=== PATIENT | female | born 1950 | race Caucasian/White ===

== ENCOUNTER 2024-05-10 08:44 | Outpatient (CLI) | payer MEDICARE, SELFPAY ==
--- NOTE | 2024-05-10 09:15 | CRLHL7_ITS ---
For Patients: As a result of the Century Cures Act, medical imaging exams and procedure reports are released immediately into your electronic medical record. You may view this report before your referring provider. If you have questions, please contact your health care provider. ULTRASOUND-GUIDED CORE NEEDLE BREAST BIOPSY OF TWO SITES AND POST-BIOPSY DIGITAL MAMMOGRAM FOR BIOPSY MARKER PLACEMENT CLINICAL HISTORY: Indeterminate lesions. COMPARISON STUDIES: 04/22/2024, 05/02/2024. TECHNIQUE: Real-time ultrasound with image documentation was used for targeting the breast lesions. A core needle biopsy system was used to obtain core tissue samples with a 18-gauge probe. Post-biopsy CC and ML digital mammograms were obtained to document position of the biopsy marker. CONSENT and TIME OUT: The procedure, risks, and alternatives were explained to the patient and a consent was signed. [place] Protocol was followed including pre-procedure verification that relevant information/documentation was available, reviewed and properly matched to the patient; consent accurate and complete; and equipment and supplies available. Time Out was conducted just prior to starting procedure to verify the four required elements: patient identity, correct side/site marked (if applicable), procedure, relevant images/results properly labeled and displayed (if applicable). PROCEDURE: All biopsies were performed in a similar manner. The patient was positioned supine on the ultrasound table. The breast was prepped with ChloraPrep. 6 cc of 1 percent lidocaine used for local anesthesia. Core samples were obtained. A sterile metal biopsy clip was placed percutaneously to gabriela the lesion position within the breast. The specimens were placed in 10% formalin and sent to the Pathology Department. Pressure was held on the biopsy site until all bleeding subsided. The skin incision was closed with Steri-Strips. An ice pack was positioned over the biopsy site. The patient tolerated the procedure well. Post-biopsy instructions were reviewed with the patient, and a written copy was given to her. SITE A: LATERALITY: LEFT breast. LESION: Hypoechoic shadowing nodule measuring 11 x 10 x 8 mm. SUSPICION: High. NUMBER OF SAMPLES: 6. BIOPSY CLIP SHAPE: Oval. PROXIMITY OF CLIP TO TARGET: Within the lesion. SITE B: LATERALITY: LEFT. LESION: Hypoechoic nodule measuring 9 x 6 x 6 mm. SUSPICION: Intermediate. NUMBER OF SAMPLES: 5. BIOPSY CLIP SHAPE: HydroMARK. PROXIMITY OF CLIP TO TARGET: Within/immediately adjacent to the lesion. DISTANCE BETWEEN: Sites A and B: 9 cm. IMPRESSION: Ultrasound-guided breast biopsy of two sites. When the pathology report is available, an addendum to this report will be made. ACR not applicable Dictated by Andrew Rai MD @ 05/10/2024 10:34:50 AM /sp/thalia SP/Dictated by: Andrew Rai MD @ 05/10/2024 10:34:00 AM (Electronically Signed)
--- NOTE | 2024-05-10 10:00 | CRLHL7_ITS ---
For Patients: As a result of the Century Cures Act, medical imaging exams and procedure reports are released immediately into your electronic medical record. You may view this report before your referring provider. If you have questions, please contact your health care provider. PLEASE SEE LEFT ULTRASOUND-GUIDED TWO SITE BIOPSY OF SAME DAY. CRL:sp SP/Dictated by: Andrew Rai MD @ 05/10/2024 10:30:00 AM (Electronically Signed)
== END 2024-05-10 08:45 | disposition home or self-care (01) ==
LOC: US 08:46
PROVIDERS: PCP Family Medicine; Visit Provider Family Medicine
DX: N63.20 Unspecified lump in the left breast, unspecified quadrant (principal); C50.912 Malignant neoplasm of unspecified site of left female breast; R92.8 Other abnormal and inconclusive findings on diagnostic imaging of breast
CPT/HCPCS: 19083; 19084; 77065; 88305; 88360; 88361; A4648; A4649

== ENCOUNTER 2024-06-06 06:20 | Day surgery (SDC) | payer MEDICARE, SELFPAY ==
[2024-06-06] VITALS (12 sets, daily range): BP systolic 145–182; BP diastolic 65–82; PULSE 68–78; RESP 10–20; TEMP 36.3–36.7; O2SAT 91–100; BMI 34.9
--- OUTSIDE RECORDS SUMMARY | 2024-06-06 06:24 | XMS_ITS | Clinical Summary ---
Author Organization [facility] & [facility] Address [place], [place] [address] Care Team Providers Care Quality Facilitator Name Role Phone MikaelteRicky dunn MD Primary Care Provider + Allergies Active Allergy Reactions Criticality Noted Date Comments Chocolate Flavor GI Upset High 08/17/2020 Phenytoin Ataxia 01/03/2007 Medications Medication Sig Dispensed Refills Start Date End Date Status atenoloL (TENORMIN) 50 mg tabletIndications:Essentia l hypertension Take 1 Tablet (50 mg) by mouth once daily. 90 Tablet 3 03/06/2024 Active atorvastatin (LIPITOR) 20 mg tabletIndications:Pure hypercholesterolemia Take 1 Tablet (20 mg) by mouth at bedtime. 90 Tablet 3 03/06/2024 Active Active Problems Problem Noted Date Diagnosed Date Colon polyp 04/07/2023 Overview (04/07/2023): Colonoscopy 04/2023 SSA, large TA, repeat in 3 years Idiopathic gout of knee 05/20/2014 Overview (05/20/2014): Left knee uric acid crystals on aspiration 2013. Unspecified essential hypertension 01/03/2007 Pure hypercholesterolemia 01/03/2007 Encounters Date Type Department Care Team Description 05/24/2024 Telephone [facility] [address] [place] [address] Destiny Briones MD Another order needed 05/23/2024 2:30 PM CDT Preop Visit [facility] [address] [facility] [place] [id number] VoteRicky dunn MD Preoperative Exam ([place], Dr. Briones, 06/06/24, left breast lump) 05/23/2024 Telephone [facility] [address] [place] [address] Destiny Birones MD 05/23/2024 Travel 05/21/2024 3:15 PM CDT Office Visit [facility] [address] [place] [address] [address] Destiny Briones MD Consult (Left breast cancer) 05/21/2024 Travel 05/13/2024 Orders Only [facility] Jorge Luis [facility] [address] Ricky Flynn MD 2 scans: (2-Ord) [facility], US GUIDED BREAST BIOPSY LT, 05/10/2024 05/10/2024 Orders Only [facility] Scanner 1 scan: (1-Ord) [facility], MM CLIP PLACEMENT LT, 05/10/2024 05/10/2024 Lab Requisition [facility] [phone] Unknown, Doctor 05/10/2024 Lab Requisition [facility] [phone] Unknown, Doctor 05/02/2024 2:30 PM CDT Ancillary Procedure [facility] Jorge Luis [facility] [address] 05/02/2024 2:00 PM CDT Ancillary Procedure [facility] [place] [address] [address] 05/02/2024 Ancillary Orders [facility] [place] [address] [address] Ricky Flynn MD 05/02/2024 Travel 04/29/2024 Travel 04/22/2024 9:15 AM CDT Orders Only [facility] [place] [address] [address] Lab, [facility] 04/22/2024 7:40 AM CDT Ancillary Procedure [facility] [place] [address] [address] 04/22/2024 Travel 03/06/2024 7:55 AM CDT Office Visit [facility] [address] [place] [address] VoteRicky dunn MD Medicare ANNUAL (subsequent) Visit (73 year old female) 03/06/2024 Travel from Last 3 Months Immunizations Name Administration Dates Next Due Pneumococcal Poly,23-Valent (Pneumovax) 12/05/19 19 Pneumococcal conj 13-Valent (Prevnar 13) 017 Td (Age >=7 Years) 05/18/2000 Tdap 10/14/2010 Family History Medical History Relation Name Comments Cancer-prostate Father 2004 d Heart Disease Father triple bypass Hypertension Mother of Liver c ancer Cancer Sister uterine 2006 Cancer-breast Sister Relation Name Status Comments Father Mother Alive Sister Social History Tobacco Use Types Packs/Day Years Used Date Smoking Tobacco: Never Smokeless Tobacco: Never Tobacco Cessation:Counseling Given: Yes Alcohol Use Standard Drinks/Week Comments No 0 (1 standard drink = 0.6 oz pur e alcohol) PHQ-2 Answer Date Recorded PHQ-2 TOTAL SCORE 0 03/06/2024 Social Connections Answer Date Recorded Frequency of Communication with Friends and Fami ly 0 03/06/2024 Financial Resource Strain Answer Date R ecorded Difficulty of Paying Living Expenses 3 03/06/2024 Difficulty of Paying Living Expenses Not on file 03/06/2024 Food Insecurity Answer Date Recorded Worried About Running Out of Food in the Last Ye ar 1 03/06/2024 Transportation Needs Answer Date Record ed Lack of Transportation (Medical) 1 03/06/2024 Housing Stability Answer Date Recorded Unable to Pay for Housing in the Last Year 1 03/06/2024 Sex and Gender Information Value Date Recorded Sex Assigned at Not on file Gender Identity Not on file Sexual Orientation Not on file Obstetrics History Para Term AB IAB SAB Ectopic Multiple Livin g Live Births 3 3 2 1 3 Date Outcome GA Total Labor Labor/2nd/3rd Weight Sex Type Anes PTL Mary Beth A1 A5 Name Clin Term Term Last Filed Vital Signs Vital Sign Reading Time Taken Comments Blood Pressure 148/69 05/23/2024 2:22 PM CDT Pulse 63 05/23/2024 2:22 PM CDT Temperature 37.2 ??C (99 ??F) 05/23/2024 2:22 PM CDT Respiratory Rate 16 04/04/2023 9:32 AM CDT Oxygen Saturation 96% 05/23/2024 2:22 PM CDT Inhaled Oxygen Concentration - - Weight 73.3 kg (161 lb 9.6 oz) 05/23/2024 2:22 P M CDT Height 145.9 cm (4' 9.44) 05/23/2024 2:22 PM CD T Body Mass Index 34.44 05/23/2024 2:22 PM CDT Plan of Treatment Upcoming Encounters Date Type Department Care Team (Late st Contact Info) Description 06/06/2024 8:00 AM CDT Office Visit [facility] [address] [place] [address] Destiny Briones MD [address] [place] [address] Health Maintenance Due Date Last Done Comments Hepatitis C screening for ag e 18-79 1968 Zoster (shingles) series for age 50+ (1 of 2) 1967 Tetanus booster 10/14/2020 10/14/2010, 05/18/2000 COVID-19 vaccine series (3 - Moderna risk series) 05/04/2021 04/06/2021, 03/02/2021 RSV vaccine for adults or (1 - 1-dose 75+ series) 2023 Influenza for age 65+ 05/05/2024 Depression screening for age 12+ 03/06/2025 03/06/2024, 03/01/2023, 03/01/2023, Additional history exists Medicare Wellness for age 65+ 03/07/2025, 03/01/2023, 02/23/2022, Additional history exists BMI (ht and wt on same day) for age 18+ 05/23/2025 05/23/2024, 03/06/2024, 03/01/2023, Additional history exists Colonoscopy through age 75 04/04/2026 04/04/2023, Lipids for age 45-75 03/06/2029 03/06/2024, 03/01/2023, 02/23/2022, Additional history exists Tdap Completed 10/14/2010 Pneumococcal series for age 65+ Completed 9, 12/20/2016 DEXA/DXA scan for age 65+ Completed 03/01/2023, 04/2019 Procedures Procedure Name Priority Date/Time Associated Diagnosis Comments EKG 12 LEAD Routine 05/24/2024 11:47 AM CDT Pre-op exam [place] READING EKG - NO CHARGE, COMP ONLY Routine 05/24/2024 11:46 AM CDT Pre-op exam LAB TRACKING EVENT Routine 05/10/2024 9: 37 AM CDT LAB TRACKING EVENT Routine 05/10/2024 9: 20 AM CDT PATH BREAST CORE BIOPSY Routine 05/10/2024 9:20 AM CDT US BIOPSY BREAST NEEDLE W JOE W GUIDE LEFT [place] 05/10/2024 12:00 AM CDT Abnormal mammogram SCAN-OPERATIVE/PROCED URE REPORT 05/10/2024 12:00 AM CDT US BREAST UNILATERAL LEFT LIMITED [place] 05/02/2024 2:57 PM CDT Abnormal mammogram XR MAMMO HANNAH UNI ADDL VIEWS LEFT [place] 05/02/2024 2:22 PM CDT Abnormal mammogram BASIC METABOLIC PANEL Routine 04/22/2024 9:11 AM CDT Serum calcium elevated XR MAMMO HANNAH BILAT SCREEN Routine 04/22/2024 8:00 AM CDT Visit for screening mammogram CBC WITH AUTO DIFFERENTIAL Routine 03/06/2024 8:59 AM CDT Medicare annual wellness visit, subsequent URIC ACID Routine 03/06/2024 8:59 AM CDT Acute idiopathic gout of right knee LIPID PANEL W REFLEX MEASURED LDL Routine 03/06/2024 8:59 AM CDT Screening cholesterol level ALT (SGPT) Routine 03/06/2024 8:59 AM CDT Screening cholesterol level BASIC METABOLIC PANEL Routine 03/06/2024 8:59 AM CDT Unspecified essential hypertension CBC WITH AUTO DIFFERENTIAL Routine 03/06/2024 8:59 AM CDT Medicare annual wellness visit, subsequent COLONOSCOPY 04/04/2023 8:33 AM CDT XR DXA BONE DENSITY 2 SITES AXIAL Routine 03/01/2023 11:30 AM CDT Menopause from Last 3 Months or Most Recently Relevant to Health Maintenance Results * EKG 12 LEAD (05/24/2024 11:47 AM CDT) Ricky Flynn MD EKG ORD * [place] READING EKG - NO CHARGE, COMP ONLY (05/24/2024 11:46 AM CDT) Ricky Flynn MD PB - PROVIDER RE ADINGS * LAB TRACKING EVENT (05/10/2024 9:37 AM CDT) Only the most recent of2 resultswithin the time period is included. Other (Other) Client Collect / Unknown 05/10/2024 9:37 AM CDT 05/10/2024 10:14 PM CDT Doctor Unknown LAB BILL ONLY [facility] [address] [place] [address], * PATH BREAST CORE BIOPSY (05/10/2024 9:20 AM CDT) Case Report Pathology Report ?Case: [id number] ? Authorizing Provider: ??Unknown, Doctor ?Collected: ? 05/10/2024 0920 ? Ordering Location: ? [facility] ?Received: ?05/11/2024 0237 ? Pathologist: ? Dennise Vasquez MD ? Specimens: ?? A) - Left Breast Core Ultrasound Biopsy ? B) - Left Breast Core Ultrasound Biopsy ? 05/14/2024 2:56 PM CDT [facility] Amendment 05/14/2024 - Amendment issued to incorporate ancillary studies. 05/14/2024 2:56 PM CDT [facility] Final Diagnosis A) LEFT BREAST, 6:00, 10 CM FROM NIPPLE, ULTRASOUND-GUIDED CORE BIOPSY: 1. Invasive ductal carcinoma ?? a. Roy grade: II of III; Shira score: 6 of 9 ?? b. Angio-lymphatic invasion: Absent ?? c. Associated DCIS: Present ?? d. Subtype: Cribriform ? e. Grade of DCIS: 2 of 3 2. Breast Ancillary Testing: ?a. Hormone Receptors: ?Estrogen receptor: Positive (100%, strong staining) ?Progesterone receptor: Positive (98%, strong staining) ?b. HER2 by IHC: Negative (1+ by manual morphometry) ?c. Ki-67: 4% by image analysis B) LEFT BREAST, 5:00, 10 CM FROM NIPPLE, ULTRASOUND-GUIDED CORE BIOPSY: 1. Invasive ductal carcinoma with mucinous differentiation ?? a. Roy grade: II of III; Roy score: 6 of 9 ?? b. Angio-lymphatic invasion: Absent ?? c. Associated DCIS: Absent 2. Breast Ancillary Testing: ?a. Hormone Receptors: ?Estrogen receptor: Positive (99%, strong staining) ?Progesterone receptor: Positive (73%, moderate staining) ?b. HER2 by IHC: Negative (0-ultralow by manual morphometry) ?c. Ki-67: 13% by image analysis 05/14/2024 2:56 PM T [facility] Amendment electronically signed by Cleo Wheat MD on 05/14/2024 at 2:56 PM Comment A,B) The tumors are similar in grade but have different morphologic patterns of invasion, as such breast ancillary testing will be performed on each tumor. These are image-guided breast biopsies. The pathologic findings should be correlated with radiologic and clinical findings prior to treatment decisions. Case seen in consultation with Dr. Davidson 05/14/2024 2:56 PM [facility] Clinical Information A) Left breast lobulated, circumscribed, hypoechoic mass measuring 11 mm at 6:00, 10 cm from the nipple (#1). B) Left breast lobulated, circumscribed, hypoechoic mass measuring 9 mm at 5:00, 10 cm from the nipple (#2). Distance between sites: 9 cm 05/14/2024 2:56 PM T [facility] Gross Description A) Label: Patient's name and L breast 6:00 #1 Description: 6 Fibrofatty core biopsies Size: 0.7-1.3 cm in length by 0.2 cm in diameter Ink color: Green The specimen is submitted in toto in two cassettes. Cold ischemic time: Less than 60 minutes, meets current ASCO/CAP guidelines. ?? The specimen was fixed in formalin for a minimum of 6 hours and not longer than 72 hours. B) Label: Patient's name and L breast 5:00 #2 Description: 7 Fibrofatty core biopsies Size: 0.6-1.1 cm in length by 0.2 cm in diameter Ink color: Blue The specimen is submitted in toto in two cassettes. Cold ischemic time: Less than 60 minutes, meets current ASCO/CAP guidelines. ?? The specimen was fixed in formalin for a minimum of 6 hours and not longer than 72 hours. [facility] 05/11/2024 05/14/2024 2:56 PM CDT [facility] Microscopic Description The final diagnosis is based on microscopic examination of appropriate sections of all specimens. A) The presence of green ink is confirmed on tissue sections. B) The presence of blue ink is confirmed on tissue sections. 05/14/2024 2:56 PM CDT [facility] SYNOPTIC REPORTING Breast Biomarker Reporting Template BREAST BIOMARKER REPORTING TEMPLATE - A Protocol posted: 08/16/2023 ?? Test(s) Performed: ? Estrogen Receptor (ER) Status: ?Positive (greater than 10% of cells demonstrate nuclear positivity) ? Percentage of Cells with Nuclear Positivity: ?100 % ? Average Intensity of Staining: ?Strong ? Test Type: ?Laboratory-devel oped test ? Primary Antibody: ?SP1 ?? Test(s) Performed: ? Progesterone Receptor (PgR) Status: ?Positive ? Percentage of Cells with Nuclear Positivity: ?98 % ? Average Intensity of Staining: ?Strong ? Test Type: ?Laboratory-devel oped test ? Primary Antibody: ?16 ?? Test(s) Performed: ? HER2 by Immunohistochemist ry: ?Negative (Score 1+) ? Test Type: ?Laboratory-devel oped test ? Primary Antibody: ?4B5 ?? Test(s) Performed: ?Ki-67 ? Ki-67 Percentage of Positive Nuclei: ?4 % ? Primary Antibody: ?MIB1 ?? Cold Ischemia and Fixation Times: ?Meet requirements specified in latest version of the ASCO / CAP Guidelines ?? Testing Performed on Block Number(s): ?A1 METHODS ?? Fixative: ?Formalin ?? Image Analysis: ?Performed ? Method: ?Aperio morphometric analysis ? Biomarkers Scored by Image Analysis: ?ER ? Biomarkers Scored by Image Analysis: ?PgR ? Biomarkers Scored by Image Analysis: ?Ki-67 ?? Comment(s): ?6,289 NUCLEI ANALYZED FOR KI67 Breast Biomarker Reporting Template BREAST BIOMARKER REPORTING TEMPLATE - B Protocol posted: 08/16/2023 ?? Test(s) Performed: ? Estrogen Receptor (ER) Status: ?Positive (greater than 10% of cells demonstrate nuclear positivity) ? Percentage of Cells with Nuclear Positivity: ?99 % ? Average Intensity of Staining: ?Strong ? Test Type: ?Laboratory-devel oped test ? Primary Antibody: ?SP1 ?? Test(s) Performed: ? Progesterone Receptor (PgR) Status: ?Positive ? Percentage of Cells with Nuclear Positivity: ?73 % ? Average Intensity of Staining: ?Moderate ? Test Type: ?Laboratory-devel oped test ? Primary Antibody: ?16 ?? Test(s) Performed: ? HER2 by Immunohistochemist ry: ?Negative (Score 0) ? Test Type: ?Laboratory-devel oped test ? Primary Antibody: ?4B5 ?? Test(s) Performed: ?Ki-67 ? Ki-67 Percentage of Positive Nuclei: ?13 % ? Primary Antibody: ?MIB1 ?? Cold Ischemia and Fixation Times: ?Meet requirements specified in latest version of the ASCO / CAP Guidelines ?? Testing Performed on Block Number(s): ?B1 METHODS ?? Fixative: ?Formalin ?? Image Analysis: ?Performed ? Method: ?Aperio morphometric analysis ? Biomarkers Scored by Image Analysis: ?ER ? Biomarkers Scored by Image Analysis: ?PgR ? Biomarkers Scored by Image Analysis: ?Ki-67 ?? Comment(s): ?1,198 NUCLEI ANALYZED FOR KI67 05/14/2024 2:56 PM CDT [facility] Additional Information Interpreted at [facility], Central Laboratory - [address] [place] [address] Immunohistochemist ry controls were reviewed and approved by the pathologist during this examination. Patients with breast cancers that are HER2 IHC 3+ or IHC 2+/LIGIA amplified may be eligible for several therapies that disrupt HER2 signaling pathways. Invasive breast cancers that test 'HER2-negative' (IHC 0, 1+ or 2+/LIGIA not-amplified) are more specifically considered 'HER2-negative for protein overexpression/gen e amplification' since non-overexpressed levels of the HER2 protein may be present in these cases. Patients with breast cancers that are HER2 IHC 1+ or IHC 2+/LIGIA not amplified may be eligible for a treatment that targets non-amplified/non- overexpressed levels of HER2 expression for cytotoxic drug delivery (IHC 0 results do not result in eligibility currently). 05/14/2024 2:56 PM CDT [facility] Other (Left Breast Core Ultrasound Biopsy) 05/10/2024 9:20 AM CDT 05/11/2024 2:37 AM CDT Specimen (specimen) (Left Breast Core Ultrasound Biopsy) 05/10/2024 9:37 AM CDT 05/11/2024 2:43 AM CDT Doctor Unknown PATHOLOGY/CYTOLOGY [facility] [address] [place] [address], [place] * US BIOPSY BREAST NEEDLE W JOE W GUIDE LEFT (05/10/2024 12:00 AM CDT) Anatomical Region Laterality Modality Breast Left Left Ultrasound Ricky Flynn MD US * SCAN-OPERATIVE/PROCEDURE REPORT (05/10/2024 12:00 AM CDT) Scanner OTHER * US BREAST UNILATERAL LEFT LIMITED (05/02/2024 2:57 PM CDT) Anatomical Region Laterality Modality BREASTS, Breast Left, Breast Right Left Ultrasound Narrative 05/03/2024 3:09 PM CDT For Patients: As a result of the Cures Act, medical imaging exams and procedure reports are released immediately into your electronic medical record. ??You may view this report before your referring provider. ?? If you have questions, please contact your health care provider. LEFT BREAST LIMITED ULTRASOUND, 05/02/2024 PLEASE SEE [id number] FOR COMBINED REPORT WITH LEFT DIGITAL MAMMOGRAM OF SAME DAY. Ricky Flynn MD US * XR MAMMO HANNAH UNI ADDL VIEWS LEFT (05/02/2024 2:22 PM CDT) Anatomical Region Laterality Modality BREASTS, Breast Left Mammography 05/02/2024 3:43 PM CDT Impressions 05/03/2024 3:09 PM CDT Suspicious spiculated mass in the LEFT breast at 6 o'clock 10 cm from the nipple measuring 11 mm. Suspicious solid nodule in the LEFT breast at 5 o'clock 10 cm from the nipple measuring 9 mm. RECOMMENDATIONS: Ultrasound-guided biopsy of both lesions. Results and recommendations discussed with the patient. BI-RADS Category 5: Highly Suggestive of Malignancy. Dictated by: Andrew Rai MD @05/02/2024 3:43:36 PM CRL:rcd PATIENTS: You will also receive a letter with your examination results in an easy to read format. ??If you have questions about your results, please contact your referring provider. Narrative 05/03/2024 3:09 PM CDT For Patients: As a result of the Century Cures Act, medical imaging exams and procedure reports are released immediately into your electronic medical record. ??You may view this report before your referring provider. ?? If you have questions, please contact your health care provider. LEFT BREAST DIGITAL DIAGNOSTIC MAMMOGRAM ADDITIONAL VIEWS WITH TOMOSYNTHESIS, 05/02/2024 LEFT BREAST LIMITED ULTRASOUND, 05/02/2024 CLINICAL HISTORY: LEFT breast mass/asymmetry. COMPARISON: 04/22/2024, 04/19/2023, 02/23/2022. TECHNIQUE: Digital LEFT mammogram in four projections. Tomosynthesis was used in this interpretation. Real-time ultrasound imaging of LEFT breast with imaging documentation. Scanning was performed by both the technologist and the radiologist. BREAST COMPOSITION: There are scattered areas of fibroglandular density. FINDINGS: 3D spot compression CC/MLO LEFT breast mammogram images are submitted. Persistent spiculated mass is present within the inferior breast, CC view only. More laterally, there is a persistent nodular density within the lower outer quadrant. Both of these are new since 2022. Targeted LEFT breast ultrasound performed. At 7 o'clock 10 cm from the nipple, there is a stable cluster of microcysts, similar to 09/01/2022. At 6 o'clock 10 cm from the nipple, there is a very hypoechoic solid nodule, taller than wide, measuring 10 x 11 x 8 mm. At 5 o'clock LEFT breast 10 cm from the nipple, there is a solid lobular nodule measuring 9 x 6 x 6 mm. Ricky Flynn MD MAMMO * (ABNORMAL) BASIC METABOLIC PANEL (04/22/2024 9:11 AM CDT) Only the most recent of2 resultswithin the time period is included. SODIUM 141 136 - 145 mmol/L 04/22/2024 4:27 PM CDT [facility] POTASSIUM 4.5 3.5 - 5.1 mmol/L 04/22/2024 4:27 PM CDT [facility] CHLORIDE 103 98 - 107 mmol/L 04/22/2024 4:27 PM CDT [facility] CO2,TOTAL 28 22 - 29 mmol/L 04/22/2024 4:27 PM CDT [facility] ANION GAP 10 5 - 18 04/22/2024 4:27 PM CDT [facility] GLUCOSE 95 70 - 99 mg/dL 04/22/2024 4:27 PM CDT [facility] CALCIUM 10.2 8.8 - 10.2 mg/dL 04/22/2024 4:27 PM CDT [facility] BUN 10 8 - 23 mg/dL 04/22/2024 4:27 PM T [facility] CREATININE 1.03(H) 0.50 - 0.90 mg/dL 04/22/2024 4:27 PM CDT [facility] BUN/CREAT RATIO 10 10 - 20 4:27 PM T [facility] eGFR 57(L) >90 mL/min/1.7 3m2 04/22/2024 4:27 PM CDT [facility] Comment:As of 2021, eG FR is calculated by the CKD-EPI creatinine equation without race adjustment. ??eGFR can be influenced by muscle mass, exercise, and diet. ??The reported eGFR is an estimation only and is only applicable if the renal function is stable. Blood BLOOD SPECIMEN / Unknown Venipuncture / Unknown 04/22/2024 9:11 AM CDT 04/22/2024 9:11 AM CDT Ricky Flynn MD [facility] [address] [place] [address], * XR MAMMO HANNAH BILAT SCREEN (04/22/2024 8:00 AM CDT) Anatomical Region Laterality Modality BREASTS, Breast Left, Breast Right Bilateral Mammography 04/22/2024 2:03 PM CDT Impressions 04/22/2024 4:00 PM CDT LEFT breast asymmetry/mass. RECOMMENDATIONS: Additional mammographic views of the LEFT breast including 3D spot compression CC MLO of the lobular density within the lower outer quadrant. 3D spot compression CC and 3D true lateral views of the spiculated nodule within the medial LEFT breast. LEFT breast ultrasound may also be required. A member of the health care team will contact the patient to schedule the required additional imaging appointment. BI-RADS Category 0: Incomplete: Need Additional Imaging Evaluation and/or Prior Mammograms for Comparison Dictated by: Andrew Rai MD @04/22/2024 2:03:10 PM PATIENTS: You will also receive a letter with your examination results in an easy to read format. ??If you have questions about your results, please contact your referring provider. Narrative 04/22/2024 4:00 PM CDT For Patients: As a result of the Cures Act, medical imaging exams and procedure reports are released immediately into your electronic medical record. ??You may view this report before your referring provider. ?? If you have questions, please contact your health care provider. BILATERAL DIGITAL SCREENING MAMMOGRAM WITH COMPUTER-AIDED DETECTION AND TOMOSYNTHESIS, 04/22/2024 CLINICAL HISTORY: Routine screening exam. COMPARISON: 04/19/2023, 03/01/2022, 02/23/2022, 01/22/2020. TECHNIQUE: Digital mammogram in CC and MLO projections including computer-aided detection (CAD). Tomosynthesis was used in this interpretation. BREAST COMPOSITION: There are scattered areas of fibroglandular density. FINDINGS: RIGHT Breast: No suspicious findings. LEFT Breast: There is a new spiculated nodular density located within the medial breast, CC view only, 10 cm from the nipple. An additional new nodule is present within the lower outer quadrant 10 cm from the nipple. Stable benign lobular density within the lower inner quadrant. Ricky Flynn MD MAMMO * (ABNORMAL) CBC WITH AUTO DIFFERENTIAL (03/06/2024 8:59 AM CDT) WHITE BLOOD COUNT 7.1 4.5 - 11.0 thou/cu mm 03/06/2024 9:04 AM CDT [facility] RED BLOOD COUNT 4.14 4.00 - 5.20 mil/cu mm 03/06/2024 9:04 AM CDT [facility] HEMOGLOBIN 12.2 12.0 - 16.0 g/dL 03/06/2024 9:04 AM CDT [facility] HEMATOCRIT 37.3 33.0 - 51.0 % 03/06/2024 9:04 AM CDT [facility] MCV 90 80 - 100 fL 03/06/2024 9:04 AM CDT [facility] MCH 29.5 26.0 - 34.0 pg 03/06/2024 9:04 AM CDT [facility] MCHC 32.7 32.0 - 36.0 g/dL 03/06/2024 9:04 AM CDT [facility] RDW 13.8 11.5 - 15.5 % 03/06/2024 9:04 AM CDT [facility] PLATELET COUNT 222 140 - 440 thou/cu mm 03/06/2024 9:04 AM CDT [facility] MPV 11.3(H) 6.5 - 11.0 fL 03/06/2024 9:04 AM CDT [facility] % NEUT 65.1 % 03/06/2024 9:04 AM CDT [facility] % LYMPH 23.9 % 03/06/2024 9:04 AM CDT [facility] % MONO 7.8 % 03/06/2024 9:04 AM CDT [facility] % EOS 2.8 % 03/06/2024 9:04 AM CDT [facility] % BASO 0.4 % 03/06/2024 9:04 AM CDT [facility] ABSOLUTE NEUTROPHILS 4.6 1.7 - 7.0 thou/cu mm 03/06/2024 9:04 AM CDT [facility] ABSOLUTE LYMPHOCYTES 1.7 0.9 - 2.9 thou/cu mm 03/06/2024 9:04 AM CDT [facility] ABSOLUTE MONOCYTES 0.6 <0.9 thou/cu mm 03/06/2024 9:04 AM CDT [facility] ABSOLUTE EOSINOPHILS 0.2 <0.5 thou/cu mm 03/06/2024 9:04 AM CDT [facility] ABSOLUTE BASOPHILS 0.0 <0.3 thou/cu mm 03/06/2024 9:04 AM CDT [facility] Blood BLOOD SPECIMEN / Unknown Venipuncture / Unknown 03/06/2024 8:59 AM CDT 03/06/2024 9:00 AM CDT Ricky Flynn MD HEMATOLOGY [facility] [address] [place] [address], [place] [phone] * LIPID PANEL W REFLEX MEASURED LDL (03/06/2024 8:59 AM CDT) CHOLESTEROL,TOTAL 166 100 - 199 mg/dL 03/06/2024 6:49 PM CDT [facility] Comment: Cholesterol, Total Reference Ranges Desirable <200 mg/dL Borderline 200-239 mg/dL High >=240 mg/dL TRIGLYCERIDES 132 <150 mg/dL 03/06/2024 6:49 PM CDT [facility] HDL CHOLESTEROL 52 >40 mg/dL 6:49 PM CDT [facility] NON-HDL CHOLESTEROL 114 <145 mg/dl 03/06/2024 6:49 PM CDT [facility] CHOL/HDL RATIO 3.19 <4.50 03/06/2024 6:49 PM CDT [facility] LDL CHOLESTEROL 88 <=130 mg/dL 03/06/2024 6:49 PM CDT [facility] VLDL CHOLESTEROL 26 <=30 mg/dL 03/06/2024 6:49 PM CDT [facility] PROVIDER ORDERED STATUS RANDOM 03/06/2024 6:49 PM CDT [facility] Blood BLOOD SPECIMEN / Unknown Venipuncture / Unknown 03/06/2024 8:59 AM CDT 03/06/2024 9:00 AM CDT Ricky Flynn MD CHEMISTRY Performing Organization Address City/[facility]/ZIP Co de Phone Number [facility] [address] [place] [address], * URIC ACID (03/06/2024 8:59 AM CDT) URIC ACID 3.3 2.4 - 5.7 mg/dL 03/06/2024 6:49 PM CDT [facility] Blood BLOOD SPECIMEN / Unknown Venipuncture / Unknown 03/06/2024 8:59 AM CDT 03/06/2024 9:00 AM CDT Ricky Flynn MD CHEMISTRY Performing Organization Address [facility] Co de Phone Number [facility] [address] [place] [address], [place] * ALT (SGPT) (03/06/2024 8:59 AM CDT) ALT (SGPT) 21 10 - 35 IU/L 03/06/2024 6:49 PM CDT [facility] Blood BLOOD SPECIMEN / Unknown Venipuncture / Unknown 03/06/2024 8:59 AM CDT 03/06/2024 9:00 AM CDT Ricky Flynn MD CHEMISTRY Performing Organization Address City/[facility]/ZIP Co de Phone Number [facility] [address] [place] [address], [place] * COLONOSCOPY (04/04/2023 8:33 AM CDT) 04/04/2023 8:33 AM CDT Narrative Transcriptions Saman Branch MD - 04/04/2023 9:20 AM CDT Patient Name: Hayley Castanon Procedure Date: 04/04/2023 Gender: Female Date of : 1950 Admit Type: Outpatient Procedure: Colonoscopy Proceduralist: Saman Branch MD , Christina Dempsey (Nurse), Yue Cheney RN (Nurse) Indications/Pre-Op Diagnosis: Screening for colorectal malignant neoplasm, This is the patient's first colonoscopy Medications: Fentanyl 100 micrograms IV, Midazolam 2 mgIV, The level of sedation administered wasmoderate Procedure Description: The patient had risks, benefits and alternatives explained to andgave informed consent. The patient had a stable cardiopulmonary status and judged an adequate candidate for conscious sedation. The PCF-H190L [id number] was passed through the anus and advanced to the cecum, identified by appendiceal orifice and ileocecal valve. The colonoscopy was performed without difficulty. The patient toleratedthe procedure well. The quality of the bowel preparation was good. The ileocecal valve, appendiceal orifice, and rectum were photographed. Complications: No immediate complications. Estimated Blood Loss & Specimen: Estimated blood loss: none. Specimen collected - Yes and sent to Laboratory Findings: The perianal and digital rectal examinations were normal. Four sessile polyps were found in the cecum and appendiceal orifice.The polyps were 5 to 10 mm in size. These polyps were removed with a hot snare. Resection and retrieval were complete. Four sessile polyps were found in the ascending colon. The polypswere 4 to 10 mm in size. These polyps were removed with a hot snare.Resection and retrieval were complete. The exam was otherwise without abnormality. Impressions/Post-Op Diagnosis: - Four 5 to 10 mm polyps in the cecum and at the appendiceal orifice, removed with a hot snare. Resected and retrieved. - Four 4 to 10 mm polyps in the ascending colon, removed with a hot snare. Resected and retrieved. - The examination was otherwise normal. Recommendation: - Patient has a contact number available for emergencies. The signsand symptoms of potential delayed complications were discussed with the patient. Return to normal activities tomorrow. Written discharge instructions were provided to the patient. - Resume previous diet. - Continue present medications. - Await pathology results. - Repeat colonoscopy is recommended. The colonoscopy date will be determined after pathology results from today's exam become available for review. Moderate Sedation: A time out was performed before the procedure. Moderate (conscious) sedation was administered by the endoscopy nurse and supervised bythe endoscopist. The following parameters were monitored: oxygensaturation, heart rate, blood pressure, EKG, CO2, respiratory rate, adequacy of pulmonary ventilation and reponse to care. Please refer to the patient's medical record flowsheets and nursing notes for moderate sedation details. Total physician intraservice time was 26 minutes. Saman Branch MD 04/04/2023 9:20:30 AM This report has been signed electronically. Note Initiated On: 04/04/2023 8:33 AM Procedure Code(s): --- Professional --- 95914, Colonoscopy, flexible; with removalof tumor(s), polyp(s), or other lesion(s) bysnare technique Diagnosis Code(s): --- Professional --- Z12.11, Encounter for screening formalignant neoplasm of colon D12.0, Benign neoplasm of cecum D12.1, Benign neoplasm of appendix D12.2, Benign neoplasm of ascending colon CPT copyright 2021 [employer]. All rights reserved. The codes documented in this report are preliminary and upon manager summer reviewmay be revised to meet current compliance requirements. Scope In: 8:42:51 AM Scope Withdrawal Time 0 hours 20 minutes 58 seconds Scope Out: 9:06:55 AM Saman Branch MD PROCEDURE ORD * (ABNORMAL) XR DXA BONE DENSITY 2 SITES AXIAL (03/01/2023 11:30 AM CDT) Anatomical Region Laterality Modality Spine, HIPS, HIPL, HIPR Other Impressions 03/09/2023 1:00 PM CDT Osteopenia. RECOMMENDATIONS: The National Osteoporosis Foundation recommends pharmacologic treatment for patients with T-scores of -2.5 or less, patients with prior history of fragility fractures, or patients with 10-year probability of greater than 3% at hips or greater than 20% of suffering major osteoporotic fractures. Recommend continued optimization of calcium and vitamin D intake through dietary means and/or supplementation and regular exercise. Repeat scan recommended in 3-5 years. Roma Knox PA-C [facility] 03/09/2023 ?? Narrative 03/09/2023 1:00 PM CDT For Patients: Results are automatically released to your [facility] account once available, in compliance with federal regulations. This means that you may see your results before your provider has had a chance to review them. Please allow 2-3 business days for your provider to comment on the results. XR DXA Bone Mineral Density (BMD) EXAM LOCATION: [address] [address] PATIENT NAME: Hayley Castanon DATE OF : 1950 EXAM DATE: 03/01/2023 REQUESTING PROVIDER: Ricky Flynn MD GENDER AT : female HEIGHT: 4' 9.5 (03/01/2023) WEIGHT: ??163 lb 3.2 oz (03/01/2023) MENOPAUSAL STATUS: Postmenopausal RACE/ETHNICITY: White RISK FACTORS: White Race CURRENT MEDICATION FOR BONE LOSS: NONE INDICATION: Follow-up of existing osteopenia and Post-Menopause COMPARISON DATE(S): 2018 DXA scans are compared to prior studies for a patient only when the two (or more) studies were performed on the same scanner. It is not possible to compare data generated on one scanner to data from another because there are not standards in DXA equipment. This applies even if the two scanners are made by the same barrel drum cutter. PROCEDURE: Dual-energy x-ray absorptiometry performed with routine technique. Reporting is completed in the form of a T-score. The T-score represents the standard deviation from peak bone mass based on young healthy adult. A Z-score is used for diagnosis in premenopausal women, and for men under the age of 50. FINDINGS: RESULT LUMBAR SPINE L2 - L4 ??BMD: 0.969 g/cm2 T-Score: - 2.0 Z-Score: - 0.5 Change from prior in 2019: ??Decrease 6.6%. RESULTS FEMUR Left femoral neck BMD: 0.806 g/cm2 T-Score: - 1.7 Z-Score: + 0.0 Change from prior in 2019: ??Decrease 3.8%. Right femoral neck BMD: 0.794 g/cm2 T-Score: - 1.8 Z-Score: - 0.1 Change from prior in 2019: ??Decrease 0.9%. Left hip BMD: 0.873 g/cm2 T-Score: - 1.1 Z-Score: + 0.4 Change from prior in 2019: ??Decrease 2.3%. Right hip BMD: 0.857 g/cm2 T-Score: - 1.2 Z-Score: + 0.3 Change from prior in 2019: ??Decrease 5.5%. WHO criteria: Normal: T-score at or above -1 SD Osteopenia: T-score between -1.1 and -2.4 SD Osteoporosis: T-score at or below -2.5 SD FRAX RISK CALCULATION (USED FOR OSTEOPENIA ONLY): 10-year probability of major osteoporotic fracture: 11.0%. 10-year probability of hip fracture: 2.3%. Ricky Flynn MD DEXA from Last 3 Months or Most Recently Relevant to Health Maintenance Care Teams Quality Facilitator Relationship Specialty Start Date End Date MikaelteRicky dunn MD [address] [place] [address] PCP - General 06/27/06
[2024-06-06] MEDS: SODIUM CHLORIDE 0.9 % (FLUSH) 10 ML SYRINGE IVF (07:29)
[2024-06-06] MEDS: LACTATED RINGERS 1000 ML 1,000 ML 100 ML IV (07:30)
--- NOTE | 2024-06-06 08:00 | CRLHL7_ITS ---
For Patients: As a result of the Century Cures Act, medical imaging exams and procedure reports are released immediately into your electronic medical record. You may view this report before your referring provider. If you have questions, please contact your health care provider. INDICATION: Left-sided breast carcinoma presenting for sentinel node evaluation prior to surgery. TECHNIQUE: [place] lymph node study performed after the intradermal injection of 1mCi of Filtered Sulfur Colloid in the upper outer left breast. FINDINGS: The procedure and its risks were explained in detail to the patient including but not limited to the risk of bleeding, infection, and a nondiagnostic procedure. The patient understood the procedure and its risks and elected to proceed. [place] protocol was followed and the Time Out procedure was performed. Then, using sterile technique and local anesthesia, an intradermal injection of 1mCi of Filtered Sulfur Colloid was made in the upper outer left breast in the periareolar region. No complications. Dictated by Andrew Rai MD @ 06/10/2024 12:39:44 PM (Electronically Signed)
--- NOTE | 2024-06-06 08:10 | W.PM.H&PU ---
History & Physical Update History & Physical Update H&P Reviewed and patient assessed: No changes noted
--- NOTE | 2024-06-06 08:11 | P.GSOP_ITS ---
Operative Note Date of procedure: 06/06/24 Pre-op diagnosis: 1. Left breast invasive ductal carcinoma, hormone receptor positive, HER2 negative, 5 o'clock position 2. Left breast invasive ductal carcinoma, hormone receptor positive, HER2 negative, 6 o'clock position Post-op diagnosis: Same Type of Procedure: 1. Left breast lumpectomy x2 with preoperative wire localization 2. Left axillary sentinel lymph node biopsy Indications: The patient is a 73-year-old female who was found on screening mammogram to have to concerning areas on her left breast. These were each biopsied and she was found to have a 9 mm invasive ductal carcinoma with mucinous differentiation, ERPR positive, HER2 negative at the 5 o'clock position in her left breast. She was found to have a 10 mm invasive ductal carcinoma, ERPR positive, HER2 negative in the 6 o'clock position in her left breast. After discussion of options, she elected to proceed with lumpectomy of both lesions as well as sentinel lymph node biopsy. Procedure Description: After discussion of risks and benefits, the patient was brought to the operating room and placed supine on the operating table. General anesthesia was induced. 1 hr to incision, I injected radiotracer into the dermis the left breast just above the areola. 10 min prior to the incision I injected 2 ml isosulfan blue dye into the dermis above the areola. This was massaged for 3 min. The wires that had been placed by Radiology were trimmed. The area was then prepped and draped sterilely. I began by making an incision in the lower left breast in between the wires. I began with the 6 o'clock position. Dissecting in the subcutaneous plane, I took my dissection medially and inferiorly towards the wire. Once the wire was encountered this was pulled into the incision. I then took my dissection down to the chest wall. A swath of tissue around the wire was then excised using cautery. Anteriorly the tumor did feel close to the anterior aspect of the specimen. This was abutting the skin. The skin was marked with clips and stitches to determine the location of the tumor if additional margin was needed. medially towards the wire. The specimen at the 6 o'clock position was excised and marked with ink for orientation. This was then sent x-ray. Mammography confirmed the wire and the clip in the specimen. The specimen was then sent for gross margins. Attention was then turned to the more lateral lesion at 5:00 a.m.. Similarly, dissection was taken down in the subcutaneous plane to the wires. The wires were then encountered and pulled from the incision. These were then used to similarly dissect out the mass. This was taken down to the chest wall. Some muscle fiber was taken with the specimen as well as fascia. Once the mass was free, this was again marked with ink for orientation and sent to x-ray. Mammography confirmed the clip as well as the wires in the specimen. This was then sent for gross margins. Attention was then turned to the sentinel node biopsy. The probe was brought into the field. A strong signal was noted in the axilla. An incision was created just below the axillary hairline. Dissection was taken down into the subcutaneous fat through the clavipectoral fascia until the axillary fat was entered. A blue lymphatic was identified. The probe was used to identify a blue node which also had a strong signal and this was carefully dissected free of the surrounding fat using cautery. The signal was measured at 1600 ex vivo. The probe was placed back into the field and further signal was noted which was greater than 10% of the prior node. A 2nd node was dissected free of the surrounding fat using cautery. This was measured with the probe at 300 ex vivo. There was what appeared to be blue lymph node which was dissected out. This was removed from the wound and found to not have a signal. This tissue was sent along with the 1st 2 nodes to pathology. The probe was placed back in the wound and there was additional signal. A large, normal colored lymph node was identified. This was dissected out using cautery. Ex vivo the signal was weak. The probe was placed back into the axilla and no further signal was noted. There were no further blue lymph nodes or abnormal lymph nodes identified. All of this sakina tissue was sent together in formalin as left axillary sentinel lymph nodes. At this time pathology returned with the gross margin status. On the 6 o'clock lesion returned indeed with the anterior margin appearing close. The 5 o'clock lesion appeared close posteriorly as well as anteriorly though grossly they appeared negative. I planned to excise the skin overlying the 6 o'clock lesion where I had previously marked this. The 5 o'clock lesion did have tissue anteriorly which was amenable to re-excision, however posteriorly the fascia had already been removed as well as some muscle and therefore there was no additional posterior margin which could be excised. I marked out an ellipse on the medial aspect of the lumpectomy incision to encompass the area that I had marked as the site of the mass located at 6 o'clock. An ellipse was then created in the skin. Cautery was then used to excise a rim of subcutaneous fat just under the surrounding skin as well. This was inked with a new margins and sent to pathology in formalin as left breast 6 o'clock mass anterior margin re-excision. Attention was turned anterior margin of the 5 o'clock mass. A rim of tissue anteriorly was dissected out using cautery. This was then inked for orientation and sent in formalin as left breast 5 o'clock mass, re-excision of anterior margin. Once this was done both wounds were examined for hemostasis which appeared excellent. I placed clips in the lumpectomy bed to gabriela the borders of both tumors, specifically with 3 clips cluster on the chest wall laterally where the 5 o'clock tumor had been located in the event that the margin is positive and radiation is necessary. Using cautery I dissected the breast tissue off of the fascia superiorly to allow it to mobilize more affectively to close the lumpectomy space. The septum of tissue between the 2 lumpectomy sites was reapproximated to the superior breast tissue using 2 0 Vicryl stitches. Once this was done Antonio was placed in both wound beds. Two 0 Vicryl was used to close the clavipectoral fascia and the axilla as well. Once this was done, the incisions were closed with 3-0 Vicryl dermal and 4-0 M onocryl running subcuticular suture. Sterile dressings were then applied. ? The patient was then woken and transported to the recovery area in stable condition. ? The patient tolerated the procedure well. Findings: 1. Left breast tumor, 6 o'clock, specimen mammogram containing clip and wire, pathology showing anterior margin was close 2. Left breast tumor, 5 o'clock, specimen mammogram containing clip and wire, pathology showing negative margins, however anterior margin and posterior margin closed. Able to re-excise anterior margin, however unable to re-excise posteriorly. 3. At least 3 sentinel lymph nodes identified Anesthesia: GETA Surgeon: Destiny Briones MD Estimated blood loss (mL): 5 Specimen: Other Additional Specimen Information: 1. Left breast mass, 6 o'clock 2. Left breast mass, 5 o'clock 3. Left axillary sentinel lymph nodes 4. Left breast mass, 6 o'clock re-excision anterior margin 5. Left breast mass, 5 o'clock, re-excision anterior margin Condition: stable Disposition: PACU [place] Node Biopsy for Breast Cancer Operation Performed with Curative Intent: Yes Tracers used to Identify sentinel nodes in the upfront surgery (non-neoadjuvant) setting: Dye and Radioactive Tracer Tracers used to identify sentinel nodes in the neoadjuvant setting: N/A All nodes (colored or non-colored) present at the end of a dye filled lymphatic channel were removed: Yes All significantly radioactive nodes were removed: Yes All palpably suspicious nodes were removed: Yes Biopsy proven positive nodes marked with clips prior to chemotherapy were identified and removed: Not Applicable
--- NOTE | 2024-06-06 08:15 | CRLHL7_ITS ---
For Patients: As a result of the Cures Act, medical imaging exams and procedure reports are released immediately into your electronic medical record. You may view this report before your referring provider. If you have questions, please contact your health care provider. BREAST WIRE LOCALIZATION USING ULTRASOUND GUIDANCE x2 CLINICAL HISTORY: Biopsy-proven malignancy LEFT breast 5 o`clock 10 cm from the nipple and LEFT breast 6 o`clock. LATERALITY: LEFT breast. LESION: Biopsy-proven hypoechoic lesions 5 o`clock LEFT breast 10 cm from the nipple and 6 o`clock LEFT breast. LOCALIZATION WIRE: [place] hook wire for both lesions. TECHNIQUE: The localization wire was placed using real-time ultrasound guidance with image documentation. Cranial-caudal and medial-lateral digital mammograms were obtained after localization wire placement. CONSENT and TIME OUT: The procedure, risks, and alternatives were explained to the patient and a consent was signed. [place] Protocol was followed including pre-procedure verification that relevant information/documentation was available, reviewed and properly matched to the patient; consent accurate and complete; and equipment and supplies available. Time Out was conducted just prior to starting procedure to verify the four required elements: patient identity, correct side/site marked (if applicable), procedure, relevant images/results properly labeled and displayed (if applicable). PROCEDURE: Each localization wire was placed using similar technique. The skin was prepped with ChloraPrep and 5 cc of 1% lidocaine was injected for local anesthesia. The localization wire was placed within or near the targeted breast lesion using ultrasound guidance. The patient tolerated the procedure well. One wire was placed into the 6 o`clock mass. One wire was placed into the 5 o`clock mass. A second wire was placed at the 5 o`clock position adjacent to the HydroMARK clip which had migrated slightly. PROXIMITY OF WIRE TO LESION: The wires are present within the lesions adjacent to the clips. IMPRESSION: Successful breast wire localization. ACR not applicable Dictated by Andrew Rai MD @ 06/06/2024 12:47:30 PM /sp SP/Dictated by: Andrew Rai MD @ 06/06/2024 12:47:00 PM (Electronically Signed)
--- NOTE | 2024-06-06 09:00 | CRLHL7_ITS ---
For Patients: As a result of the Century Cures Act, medical imaging exams and procedure reports are released immediately into your electronic medical record. You may view this report before your referring provider. If you have questions, please contact your health care provider. PLEASE SEE LEFT BREAST WIRE LOCALIZATION OF SAME DAY. CRL:deniz SYLVIA/Dictated by: Andrew Rai MD @ 06/06/2024 12:45:00 PM (Electronically Signed)
[2024-06-06] MEDS: CEFAZOLIN 1 GM inj IVP (09:25)
[2024-06-06] MEDS: BUPIVACAINE 0.25% 30 ML INJECTION (10:07)
[2024-06-06] MEDS: LIDOCAINE 1% MDV 20 ML INJECTION (10:07)
[2024-06-06] MEDS: ISOSULFAN BLUE 5 ML VIAL INJECTION (10:07)
--- NOTE | 2024-06-06 10:20 | CRLHL7_ITS ---
For Patients: As a result of the Cures Act, medical imaging exams and procedure reports are released immediately into your electronic medical record. You may view this report before your referring provider. If you have questions, please contact your health care provider. LEFT BREAST SPECIMEN CLINICAL HISTORY: Lumpectomy. COMPARISON: 06/06/2024, 05/10/2024. FINDINGS: Two views of the left breast specimen submitted. The biopsy-proven malignancy at the 6 o`clock LEFT breast is present within the specimen along with the oval biopsy clip and the localization wire. IMPRESSION: The biopsied malignancy at 6 o`clock LEFT breast is present in the specimen along with the oval clip and single localization wire. ACR not applicable Andrew Rai MD @ 06/06/2024 12:44:33 PM /sp SP/Dictated by: Andrew Rai MD @ 06/06/2024 12:44:00 PM (Electronically Signed)
--- NOTE | 2024-06-06 10:23 | W.ANESCHARGE ---
Anesthesia Charges Start Date/Time Anesthesia Start Date: 06/06/24 Anesthesia Start Time: 09:16 Stop Date/Time Anesthesia Stop Date: 06/06/24 Anesthesia Stop Time: 12:01 Summary Extremes of Age - Over 70 or under 1: MDA
--- NOTE | 2024-06-06 10:40 | CRLHL7_ITS ---
For Patients: As a result of the Cures Act, medical imaging exams and procedure reports are released immediately into your electronic medical record. You may view this report before your referring provider. If you have questions, please contact your health care provider. LEFT BREAST SPECIMEN CLINICAL HISTORY: Lumpectomy. COMPARISON: 06/06/2024, 05/10/2024. FINDINGS: Two views of the LEFT breast specimen submitted. The specimen contains the HydroMARK clip along with the biopsy-proven malignancy at 5 o`clock LEFT breast 10 cm from the nipple. Two localization wires are also present. IMPRESSION: Specimen contains the biopsied malignancy at 5 o`clock LEFT breast 10 cm from the nipple along with the HydroMARK clip and two localization wires. ACR not applicable Dictated by Andrew Rai MD @ 06/06/2024 12:43:26 PM /sp SP/Dictated by: Andrew Rai MD @ 06/06/2024 12:43:00 PM (Electronically Signed)
--- NOTE | 2024-06-06 12:34 | SUR.PHASEI ---
patient met discharge criteria per anesthesia
--- NOTE | 2024-06-06 13:03 | W.ANESCHARGE ---
Anesthesia Charges Start Date/Time Anesthesia Start Date: 06/06/24 Anesthesia Start Time: 09:16 Stop Date/Time Anesthesia Stop Date: 06/06/24 Anesthesia Stop Time: 12:01
[2024-06-06] MEDS: HYDROCODONE-ACETAMIN 5-325 MG 1 TAB PO (13:17)
== END 2024-06-06 14:11 | disposition home or self-care (01) ==
PROVIDERS: PCP Family Medicine; Visit Provider Surgery
PROC: (CPT 19301; principal; 2024-06-06 09:15)
PROC: (CPT 19301; 2024-06-06 09:15)
PROC: (CPT 19301; 2024-06-06 09:15)
DX: C50.512 Malignant neoplasm of lower-outer quadrant of left female breast (principal); C50.812 Malignant neoplasm of overlapping sites of left female breast; Z17.21 Progesterone receptor positive status
CPT/HCPCS: 19301; 38525; 00400; 01610; 19285; 19286; 38792; 77065; 88307; 99100; J2003; A9270; A9541; C1769; J0665; J0690; J1100; J2250; J2405; J2704; J3010; J3490; J7120

== ENCOUNTER 2024-07-31 12:41 | Outpatient (CLI) | payer MEDICARE, SELFPAY ==
--- OUTSIDE RECORDS SUMMARY | 2024-07-31 12:43 | XMS_ITS | Referral Summary ---
Author Organization [facility] Address [address] [place] [address] Care Team Providers Care Grey Inspector Name Role Phone Unavailable Primary Care Provider Unavailabl e Source Comments Patient records contain information from all sites at [facility]. For routine questions regarding patient records, call [phone] during business hours, M-F 8:00 AM - 5:00 PM Central Time. Record requests for emergency care only can be directed to [phone] at any time.[facility] Encounters Date Type Department Care Team Description 07/11/2024 2:00 PM E[employer]RICIAN CONTROL E[employer]IPMENT - 07/11/2024 4:51 PM ELECTRICIAN CONTROL EQUIPMENT Hospital Encounter Department of Radiation Oncology in [address] [address] Aniyah Natarajan M.D. Malignant Neoplasm Of Breast Lower Outer Quadrant Female Left (HCC) 07/11/2024 12:39 PM ELECTRICIAN CONTROL EQUIPMENT - 07/11/2024 1:59 PM ELECTRICIAN CONTROL EQUIPMENT Hospital Encounter Department of Radiation Oncology in [address] [address] Aniyah Natarajan M.D. Malignant Neoplasm Of Breast Lower Outer Quadrant Female Left (HCC) (Primary Dx) 07/02/2024 Orders Only Department of Radiation Oncology in [address] [phone] Nichole Greenfield P.A.-C., M.S. Malignant Neoplasm Of Breast Lower Outer Quadrant Female Left (HCC) (Primary Dx) from Last 3 Months Medications atenoloL (Tenormin) 50 mg tablet Take 50 mg by mouth daily. Active atorvastatin (Lipitor) 20 mg tablet Take 20 mg by mouth at bedtime. Active Active Problems Problem Noted Date Diagnosed Date Malignant Neoplasm Of Breast Lower Outer Quadrant Female Left 07/02/2024 Cancer Staging:Pathologic stage from 06/06/2024:Stage IA(pT1c, pN0(sn), cM0, G2, ER+, MO+, HER2-, Oncotype DX score: 14) - Unsigned Social History Tobacco Use Types Packs/Day Years Used Date Smoking Tobacco: Never Smokeless Tobacco: Never Tobacco Cessation:Counseling Given: Not Answered Alcohol Use Standard Drinks/Week Comments Not Currently 0 (1 standard drink = 0.6 oz pur e alcohol) Dental Answer Date Recorded Dental: Regular Dentist Unknown 06/19/20 24 Comments Unknown Sex and Gender Information Value Date Recorded Sex Assigned at Not on file Legal Sex Female 1:12 PM CDT Gender Identity Not on file Sexual Orientation Not on file Last Filed Vital Signs Vital Sign Reading Time Taken Comments Blood Pressure 152/56 07/11/2024 12:55 PM [employer] Pulse 70 07/11/2024 12:55 PM ELECTRICIAN [employer] EQUIPMENT Temperature 36.2 C (97.2 F) 07/11/2024 12:55 PM ELECTRICIAN CONTROL EQUIPMENT Respiratory Rate - - Oxygen Saturation - - Inhaled Oxygen Concentration - - Weight 74.6 kg (164 lb 7.4 oz) 07/11/2024 12:55 PM ELECTRICIAN CONTROL EQUIPMENT Height - - Body Mass Index - - Plan of Treatment Upcoming Encounters Date Type Department Care Team (Late st Contact Info) Description 08/05/2024 12:30 PM E[employer]IAN CONTR[employer] EQUIPMENT Appointment Department of Radiation Oncology in [place], [place] [address] [place] [address] Aniyah Natarajan M.D. [address] [place] [address] Procedures Procedure Name Priority Date/Time Associated Diagnosis Comments INITIAL RAD ONC TREATMENT PLANNING CT SIMULATION Routine 07/11/2024 2:00 PM [employer] EQUIPMENT Malignant Neoplasm Of Breast Lower Outer Quadrant Female Left (HCC) OUTSIDE MAMMOGRAM Routine 05/02/2024 2:25 PM CDT OUTSIDE US BREAST Routine 05/02/2024 12: 00 AM CDT from Last 3 Months Results * Initial Rad Onc Treatment Planning CT Simulation without IV Contrast (07/11/2024 2:00 PM ELECTRICIAN CONTROL EQUIPMENT) Narrative LUIS M AMOS - 07/11/2024 2:00 PM ELECTRICIAN CONTROL EQUIPMENT Vee Metcalf, RTT 07/11/2024 2:34 PM Initial Rad Onc Treatment Planning CT Simulation without IV Contrast Performed by: Aniyah Natarajan M.D. Authorized by: Aniyah Natarajan M.D. Aniyah Natarajan M.D. RADIATION ONCOLOGY ORDERA BLES Final Result Performing Organization Address [facility] de Phone Number LUIS M AMOS na * XR MAMMO HANNAH UNI ADDL VIEWS LEFT-Outside Mammogram (05/02/2024 2:25 PM CDT) Narrative IIKS - 07/01/2024 9:59 AM CDT This order has been created and auto-finalized to support the import of outside images. If available, original interpretation can be found on the Media Tab in Chart Review, in Document Viewer, as an image in QREADS or as an Addendum. If a re-interpretation or overread is required please follow defined workflow. us Provider Not In System IMG BI PROCEDURES Final R esult Performing Organization Address [facility] de Phone Number IIMS NA * US BREAST UNILATERAL LEFT LIMITED-Outside US Breast (05/02/2024 12:00 AM CDT) Narrative IIMS - 07/01/2024 9:50 AM CDT This order has been created and auto-finalized to support the import of outside images. If available, original interpretation can be found on the Media Tab in Chart Review, in Document Viewer, as an image in QREADS or as an Addendum. If a re-interpretation or overread is required please follow defined workflow. us Provider Not In System IMG BI PROCEDURES Final R esult Performing Organization Address [facility] de Phone Number [facility]IMS NA from Last 3 Months Insurance MEDICARE
--- OUTSIDE RECORDS SUMMARY | 2024-07-31 12:43 | XMS_ITS | Encounter Summary ---
Author Organization [facility] Address [address] [place] [address] Care Team Providers Care Rn Quality Name Role Phone Unavailable Primary Care Provider Unavailabl e Reason for Visit * Appointment Request (Routine) - Closed Specialty Diagnoses / Procedures Referred By Contac t Referred To Contact Radiation Oncology Diagnoses Malignant Neoplasm Of Unspecified Site Of Laterality Unknown Female Breast (HCC) Iona Duran M.D. [address] [place] [address] Phone: tel: fax: Referral ID Status Reason Start Date Expiration Date Visits Re quested Visits Authorized [id number] Closed 06/25/2024 06/25/2025 1 1 Encounter Details Date Type Department Care Team (Latest Contact Info) Description 07/11/2024 12:39 PM PHOTOGRAPH FINISHER - 07/11/2024 1:59 PM [facility] Hospital Encounter Department of Radiation Oncology in [place], [place] [address] [place] [address] Aniyah Natarajan M.D. [address] [place] [phone] Malignant Neoplasm Of Breast Lower Outer Quadrant Female Left (HCC) (Primary Dx) Social History Tobacco Use Types Packs/Day Years [...] on file Sexual Orientation Not on file documented as of this encounter Last Filed Vital Signs Vital Sign Reading Time Taken Comments Blood Pressure 152/56 07/11/2024 12:55 PM PHOTOGRAPH FINISHER Pulse 70 07/11/2024 12:55 PM PHOTOGRAPH FINISHER Temperature 36.2 C (97.2 F) 07/11/2024 12:55 PM PHOTOGRAPH FINISHER Respiratory Rate - - Oxygen Saturation - - Inhaled Oxygen Concentration - - Weight 74.6 kg (164 lb 7.4 oz) 07/11/2024 12:55 PM PHOTOGRAPH FINISHER Height - - Body Mass Index - - documented in this encounter Medications at Time of Discharge atenoloL (Tenormin) 50 mg tablet Take 50 mg by mouth daily. atorvastatin (Lipitor) 20 mg tablet Take 20 mg by mouth at bedtime. documented as of this encounter Consult Notes * Edilia Perez M.D. - 07/11/2024 1:00 PM CST RADIATION ONCOLOGY CONSULTATION Supervising Cash Control Specialist: Dr. Natarajan Referring Provider: Iona Duran M.D. Home [address]: [address] [place] [id number] SUBJECTIVE History of present illness Mrs. Hayley Castanon is a 73 y.o. female with pT1cN0 multifocal grade 2 invasive ductal carcinoma ofthe L breast who presents in consultation for consideration of radiation treatment. The patient's oncologic history is as follows: Oncology History Malignant Neoplasm Of Breast Lower Outer Quadrant Female Left (HCC) 04/22/2024 Critical Imaging Bilateral screening mammogram demonstrated a new spiculated nodular density located within the medial left breast, 10 cm from the nipple. An additional new nodule was present within the lower outer quadrant, 10 cm from the nipple. Stable benign lobular density within the lower inner quadrant. No suspicious findings in the right breast. 05/02/2024 Critical Imaging Left breast diagnostic mammogram and ultrasound Impression: Suspicious spiculated mass in the LEFT breast at 6 o'clock 10 cm from the nipple measuring 11 mm. Suspicious solid nodule in the LEFT breast at 5 o'clock 10 cm from the nipple measuring 9 mm. 05/10/2024 Biopsy/Pathology A) LEFT BREAST, 6:00, 10 CM FROM NIPPLE, ULTRASOUND-GUIDED CORE BIOPSY: 1. Invasive ductal carcinoma a. Shira grade: II of III; Shira score: 6 of 9 b. Angio-lymphatic invasion: Absent c. Associated DCIS: Present d. Subtype: Cribriform e. Grade of DCIS: 2 of 3 2. Breast Ancillary Testing: a. Hormone Receptors: Estrogen receptor: Positive (100%, strong staining) Progesterone receptor: Positive (98%, strong staining) b. HER2 by IHC: Negative (1+ by manual morphometry) c. Ki-67: 4% by image analysis B) LEFT BREAST, 5:00, 10 CM FROM NIPPLE, ULTRASOUND-GUIDED CORE BIOPSY: 1. Invasive ductal carcinoma with mucinous differentiation a. Shira grade: II of III; [place] score: 6 of 9 b. Angio-lymphatic invasion: Absent c. Associated DCIS: Absent 2. Breast Ancillary Testing: a. Hormone Receptors: Estrogen receptor: Positive (99%, strong staining) Progesterone receptor: Positive (73%, moderate staining) b. HER2 by IHC: Negative (0-ultralow by manual morphometry) c. Ki-67: 13% by image analysis Comment: A,B) The tumors are similar in grade but have different morphologic patterns of invasion, as such breast ancillary testing will be performed on each tumor. 06/06/2024 Surgery and Procedures Left breast lumpectomy x 2 and left axillary sentinel lymph node biopsy was performed by Dr. Tsang. Final Diagnosis A) Left Breast, 6:00, lumpectomy: 1. Tumor #1: Invasive ductal carcinoma a. Size: 11 mm b. Shira grade: II of III c. DCIS: Not identified in the specimen 2. Breast Ancillary Testing: (per [id number], part A) a. Hormone Receptors: Estrogen receptor: Positive (100%, strong staining) Progesterone receptor: Positive (98%, strong staining) b. HER2 by IHC: Negative (1+ by manual morphometry) c. Ki-67: 4% by image analysis 3. Margins: a. Invasive carcinoma: - 2 mm to (initial) anterior margin (see part D) - 7 mm to posterior margin 4. Biopsy site: Present 5. Surrounding adipose breast parenchyma with proliferative fibrocystic change and benign skeletal muscle B) Left Breast, 5:00, lumpectomy: 1. Tumor #2: Invasive mucinous carcinoma a. Size: 16 mm b. [place] grade: II of III c. DCIS: Present (focal), solid type, nuclear grade 2 2. Breast Ancillary Testing: (per [id number], part B) a. Hormone Receptors: Estrogen receptor: Positive (99%, strong staining) Progesterone receptor: Positive (73%, moderate staining) b. HER2 by IHC: Negative (0-ultralow by manual morphometry) c. Ki-67: 13% by image analysis 3. Margins: a. Invasive carcinoma: - 1 mm to posterior margin - 7 mm to (initial) anterior margin (see part E) b. DCIS: 5 mm to (initial) anterior margin (see part E) 4. Biopsy site: Present 5. Surrounding adipose breast parenchyma with atypical ductal hyperplasia and fibrocystic change C) Left axillary sentinel lymph node, 1, biopsy: 1. Negative for malignancy in 3 lymph nodes (0/3) D) Left breast, anterior margin at 6:00, re-excision with evaluation of surgical margins: 1. Adipose tissue and skin 2. Negative for malignancy E) Left breast, anterior margin at 5:00, re-excision with evaluation of surgical margins: 1. Adipose breast parenchyma with proliferative fibrocystic change 2. Negative for malignancy Necrosis: Not identified Lymphatic and/or vascular invasion: Not identified Dermal lymphatic and/or vascular invasion: Not identified All margins negative for invasive carcinoma. Distance from invasive carcinoma to closest margin, 1 mm, posterior. All margins negative for DCIS greater than 10 mm. pT1c(m), pN0(sn) 06/24/2024 Other Medical Oncology consultation with Dr. Iona Duran. Oncotype DX ordered. Referral to Radiation Oncology. DEXA scan ordered. Follow-up visit in 5 weeks to discuss endocrine therapy. 07/02/2024 Genetic Testing and Tumor Genotyping Oncotype DX Recurrence Score Result: 14 07/17/2024 - Radiation Therapy Radiation Therapy Treatment Details (Noted on 07/02/2024) Site: Left Breast Technique: No technique specified Goal: Curative Planned Treatment Start Date: 07/17/2024 In the clinic today, Mrs. Hayley Castanon states she has recovered from surgery well. She is back tomost of her normal activities except for biking and using the treadmill. She has some mild swellingunder the left axilla. She has no tenderness. Past medical history Pertinent past medical history, past surgical history, medications, allergies, social history, and family history were reviewed. Pertinent past medical history includes none. The patient does not have a history of lupus, scleroderma, or ulcerative colitis. The patient has no implanted medical devices. Social history is significant for never smoker. Prior history of radiation None. Review of systems Review of systems as noted in HPI. OBJECTIVE Vitals Weight: 74.6 kg Physical exam ECO Constitutional: Pleasant, in no acute distress, ambulates without an assistive device. Breasts: Well-healed left-sided lumpectomy and SLNB scars. No palpable nodules. ASSESSMENT / PLAN #1 pT1cN0 multifocal grade 2 invasive ductal carcinoma of the L breast s/p lumpectomy x 2 Mrs. Hayley Castanon is a 73 y.o. female with multifocal early stage breast cancer who is seen in Radiation Oncology for a discussion of radiation treatment. I have reviewed the pertinent history, laboratory, and imaging studies. We discussed with the patient that, in order to reduce risk of recurrence, we recommend adjuvant radiation therapy. There are also studies supporting omission of radiation in women over 70 with early stage breast cancer. However, multifocal breast cancer has not been studied in this setting, and the patient is otherwise veryhealthy. Therefore we believe adjuvant radiation would be of benefit. We discussed that she may also benefit from hormonal therapy. She has a follow up with Dr. Duran on 08/05 to discuss this further. We discussed the logistics of radiation simulation, planning, and daily treatment. We recommend oneweek of whole breast radiation. We also reviewed the acute and late toxicities associated with treatment including skin erythema, fatigue, and small risk of injury to heart and lungs. The patient displayed understanding of the risks and benefits. We will plan for CT simulation today. Due to patient's upcoming travel and holidays, we will initiate treatment on approximately 08/05/24. All questions were answered to the patient's satisfaction. Our departmental contact information wasprovided to the patient who was encouraged to contact the Department of Radiation Oncology with further questions or concerns. Upcoming oncologic appointments and tests CT simulation today Treatment start 08/05/[address] Duran 08/05/[address] Natarajan is the solutions consultant; please see her attestation for details. Cosigned by Aniyah Natarajan M.D. at 07/11/2024 4:50 PM PHOTOGRAPH FINISHER OGRAPH FINISHER OGRAPH FINISHER Associated attestation - Aniyah Natarajan M.D. - 07/11/2024 4:50 PM PHOTOGRAPH FINISHER RADIATION ONCOLOGY CONSULT I saw and evaluated the patient and participated in the aldrich portions of the service. I reviewed thedocumentation of Dr. Edilia Perez and agree with the findings and plan. Please see Dr. Perez's detailed note for the patient's initial presentation and work-up. Briefly, Mrs. Castanon is a very pleasant 73 year old female with a resected left multifocal breast cancer who presents now to discuss radiation options. I have independently reviewed her imaging, operative and pathology reports. She was found to have lumpectomy on June 06, 2024 and was found to have an 11mm invasive ductal carcinoma, grade 2, ER/AZ+, HER2-, margins neg by 2mm and 16mm invasive mucinous carcinoma, grade 2, ER/AZ+, HER2-, margins neg by 1mm posterior. Three sentinel lymph nodes were negative. Oncotype Dx Recurrence Score was 14. On exam, she appears well. No cervical, supra/infraclavicular, or axillary adenopathy. Her breasts are symmetric with no worrisome masses, lumps, or worrisome skin changes. She has a well healed incision on her inferior left breast with minimal seroma. We discussed the findings above and below in this note with the patient and her . We discussed her treatment alternatives including ultra vs conventionally hypofractionated radiation therapy to her whole breast vs observation. We discussed the rationale, risks, side effects and adjuvant goals of radiation therapy. We discussed the acute as well as snf risks, including, but not limited to fatigue, skin erythema/desquamation, fibrosis of the breast, small risks of bone fracture, radiation pneumonitis, cardiac disease, and secondary malignancies. We discussed possibly utilizing a breath hold technique for treatment if this is better and she is able. They understood and their questions were answered. She wished to proceed with treatment. We tentatively plan on delivering 2600 cGyin 5 fractions starting August 05, 2024 as she has a trip coming up and then the . My thanks to Roger Morrow, and Gee for the opportunity to participate in this patient's care. EDUCATION Ready to learn, no apparent learning barriers were identified; learning preferences include listening. Explained diagnosis and treatment plan; patient expressed understanding of the content. CONSENT Discussed the risks, benefits, alternatives, and the necessity of other members of the healthcare team participating in the procedure. All questions answered and consent given. DIAGNOSIS #1 pT1cN0 multifocal grade 2 invasive ductal carcinoma of the left breast, s/p lumpectomy x 2 I personally spent 28 minutes in care of the patient today. Time includes both non face to face andface to face patient care. Signed by: Aniyah Natarajan M.D. 07/11/24 Radiation Oncology [facility] [address] [place] [phone] documented in this encounter Plan of Treatment Upcoming Encounters Date Type Department Care Team (Late st Contact Info) Description 08/05/2024 12:30 PM PHOTOGRAPH FINISHER Appointment Department of Radiation Oncology in [address] [phone] Aniyah Natarajan M.D. [address] [place] [address] documented as of this encounter Visit Diagnoses Diagnosis Malignant Neoplasm Of Breast Lower Outer Quadrant Female Left (HCC)- Primary documented in this encounter
--- OUTSIDE RECORDS SUMMARY | 2024-07-31 12:43 | XMS_ITS ---
Author Organization [facility] Address [address] [place] [address] Care Team Providers Care Dado Operator Name Role Phone Unavailable Unavailable Unavailable Surgery Details Not on file Complications Check Surgery Details section. Procedure Estimated Blood Loss Check Surgery Details section. Procedure Findings Check Surgery Details section. Procedure Specimens Taken Check Surgery Details section.
--- OUTSIDE RECORDS SUMMARY | 2024-07-31 12:43 | XMS_ITS | Clinical Summary ---
Author Organization [facility] Address [address] [place] [address] Care Team Providers Care Implementation Director Name Role Phone Unavailable Primary Care Provider Unavailabl e Source Comments Patient records contain information from all sites at [facility]. For routine questions regarding patient records, call [phone] during business hours, M-F 8:00 AM - 5:00 PM Central Time. Record requests for emergency care only can be directed to [phone] at any time.[facility] Medications atenoloL (Tenormin) 50 mg tablet Take 50 mg by mouth daily. Active atorvastatin (Lipitor) 20 mg tablet Take 20 mg by mouth at bedtime. Active Active Problems Problem Noted Date Diagnosed Date Malignant Neoplasm Of Breast Lower Outer Quadrant Female Left 07/02/2024 Cancer Staging:Pathologic stage from 06/06/2024:Stage IA(pT1c, pN0(sn), cM0, G2, ER+, VA+, HER2-, Oncotype DX score: 14) - Unsigned Encounters Date Type Department Care Team Description 07/11/2024 2:00 PM ASPHALT PAVER - 07/11/2024 4:51 PM ASPHALT PAVER Hospital Encounter Department of Radiation Oncology in [address] [phone] Aniyah Natarajan M.D. Malignant Neoplasm Of Breast Lower Outer Quadrant Female Left (HCC) 07/11/2024 12:39 PM ASPHALT PAVER - 07/11/2024 1:59 PM ASPHALT PAVER Hospital Encounter Department of Radiation Oncology in [address] [phone] Aniyah Natarajan M.D. Malignant Neoplasm Of Breast Lower Outer Quadrant Female Left (HCC) (Primary Dx) 07/02/2024 Orders Only Department of Radiation Oncology in [address] [place] [address] Nichole Greenfield P.A.-C., M.S. Malignant Neoplasm Of Breast Lower Outer Quadrant Female Left (HCC) (Primary Dx) from Last 3 Months Family History Medical History Relation Name Comments Prostate cancer Father Uterine cancer Sister 1 Breast cancer Sister 2 Relation Name Status Comments Father Sister 1 Sister 2 Social History Tobacco Use Types Packs/Day Years Used Date Smoking Tobacco: Never Smokeless Tobacco: Never Tobacco Cessation:Counseling Given: Not Answered Alcohol Use Standard Drinks/Week Comments Not Currently 0 (1 standard drink = 0.6 oz pur e alcohol) Dental Answer Date Recorded Dental: Regular Dentist Unknown 06/19/20 Comments Unknown Sex and Gender Information Value Date Recorded Sex Assigned at Not on file Legal Sex Female 1:12 PM CDT Gender Identity Not on file Sexual Orientation Not on file Last Filed Vital Signs Vital Sign Reading Time Taken Comments Blood Pressure 152/56 07/11/2024 12:55 PM ASPHALT PAVER Pulse 70 07/11/2024 12:55 PM ASPHALT PAVER Temperature 36.2 C (97.2 F) 07/11/2024 12:55 PM ASPHALT PAVER Respiratory Rate - - Oxygen Saturation - - Inhaled Oxygen Concentration - - Weight 74.6 kg (164 lb 7.4 oz) 07/11/2024 12:55 PM ASPHALT PAVER Height - - Body Mass Index - - Plan of Treatment Upcoming Encounters Date Type Department Care Team (Late st Contact Info) Description 08/05/2024 12:30 PM ASPHALT PAVER Appointment Department of Radiation Oncology in [place], [place] [address] [place] [phone] Aniyah Natarajan M.D. [address] [place] [address] Health Maintenance Due Date Last Done Comments CT Colonography 1950 Cologuard 1950 Hepatitis C Screening 1950 COVID-19 Vaccine (#1) 1953 Zoster Vaccines (1 of 2) 1967 DTaP,Tdap,and Td Vaccines (2 - Td or Tdap) 10/14/2020 10/14/2010 Depression Screening (Annual PHQ-2) 09/04/2023 Fall Risk Screen (Annual) 09/04/2023 RSV vaccine - (32-36 weeks) or 60+ years (1 - 1-dose 75+ series) 2023 Influenza Vaccine (#1) 2024 Mammogram 05/02/2025 05/02/2024, 04/04, 04/22/2024, Additional history exists Fasting Glucose for Diabetes Screening 04/22/2027 04/22/2024, 03/06/2024, 03/01/2023, Additional history exists Colonoscopy 04/04/2028 04/04/2023 Colorectal Cancer Surveillance 04/04/2028 Pneumococcal vaccine (65+ years) Completed 12/04/2018, 12/20/2016 Bone Density Scan (Osteoporosis Screen) Discontinued 03/01/2023 HPV Vaccines Aged Out No longer eligi ble based on patient's age to complete this topic IPV Vaccines Aged Out No longer eligi ble based on patient's age to complete this topic Procedures Procedure Name Priority Date/Time Associated Diagnosis Comments INITIAL RAD ONC TREATMENT PLANNING CT SIMULATION Routine 07/11/2024 2:00 PM ASPHALT PAVER Malignant Neoplasm Of Breast Lower Outer Quadrant Female Left (HCC) OUTSIDE MAMMOGRAM Routine 05/02/2024 2:25 PM CDT OUTSIDE US BREAST Routine 05/02/2024 12: 00 AM CDT from Last 3 Months Results * Initial Rad Onc Treatment Planning CT Simulation without IV Contrast (07/11/2024 2:00 PM ASPHALT PAVER) Narrative [facility] - 07/11/2024 2:00 PM ASPHALT PAVER Vee Metcalf, RTT 07/11/2024 2:34 PM Initial Rad Onc Treatment Planning CT Simulation without IV Contrast Performed by: Aniyah Natarajan M.D. Authorized by: Aniyah Natarajan M.D. Aniyah Natarajan M.D. RADIATION ONCOLOGY ORDERA BLES Final Result Performing Organization Address City/State/[facility] de Phone Number LUIS M AMOS na * XR MAMMO HANNAH UNI ADDL VIEWS LEFT-Outside Mammogram (05/02/2024 2:25 PM CDT) Narrative [facility] - 07/01/2024 9:59 AM CDT This order [...] PROCEDURES Final R esult Performing Organization Address [facility] de Phone Number II NA * US BREAST UNILATERAL LEFT LIMITED-Outside US Breast (05/02/2024 12:00 AM CDT) Narrative [facility] - 07/01/2024 9:50 AM CDT This order [...] PROCEDURES Final R esult Performing Organization Address [facility] de Phone Number II NA from Last [address] [place] [address] MEDICARE
--- OUTSIDE RECORDS SUMMARY | 2024-07-31 12:43 | XMS_ITS | Encounter Summary ---
Author Organization [facility] Address [address] [place] [id number] Care Team Providers Care Steam Fitter Name Role Phone Unavailable Primary Care Provider Unavailabl e Reason for Referral * Specialty Diagnoses / Procedures Referred By Contac t Referred To Contact Diagnoses Malignant Neoplasm Of Breast Lower Outer Quadrant Female Left (HCC) Nichole Greenfield P.A.-C., M.S. [address] [place] [phone] Phone: tel: fax: [facility] Region Referral ID Status Reason Start Date Expiration Date Visits Re quested Visits Authorized Scheduling Instructions Please do not schedule if patient has 10 fractions or less, unless requested by care team. * Radiation Therapy (Routine) - Authorized Specialty Diagnoses / Procedures Referred By Francisco corcoran Referred To Contact Diagnoses Malignant Neoplasm Of Breast Lower Outer Quadrant Female Left (HCC) Procedures Management Visit Aniyah Natarajan M.D. [address] [place] [address] Phone: tel: fax: [facility] Region Referral ID Status Reason Start Date Expiration Date V isits Requested Visits Authorized [id number] Authorized 07/02/2024 07/02/2025 10 10 * Radiation Therapy (Routine) - Closed Specialty Diagnoses / Procedures Referred By Contvadim t Referred To Contact Diagnoses Malignant Neoplasm Of Breast Lower Outer Quadrant Female Left (HCC) Procedures Initial Rad Onc Treatment Planning CT Simulation without IV Contrast Aniyah Natarajan M.D. [address] [place] [phone] Phone: tel: fax: [facility] Referral ID Status Reason Start Date Expiration Date Visits Re quested Visits Authorized [id number] Closed 07/02/2024 07/02/2025 1 1 * Radiation Therapy (Routine) - Authorized Specialty Diagnoses / Procedures Referred By Contvadim t Referred To Contact Diagnoses Malignant Neoplasm Of Breast Lower Outer Quadrant Female Left (HCC) Procedures Prior Auth Rad Tx Aniyah Natarajan M.D. [address] [place] [phone] Phone: tel: fax: [facility] Referral ID Status Reason Start Date Expiration Date V isits Requested Visits Authorized [id number] Authorized 07/02/2024 07/02/2025 1 1 Encounter Details Date Type Department Care Team (Late st Contact Info) Description 07/02/2024 Orders Only Department of Radiation Oncology in [place], [place] [address] [place] [address] Nichole Greenfield P.A.-C., M.S. [address] [place] [phone] Malignant Neoplasm Of Breast Lower Outer Quadrant Female Left (HCC) (Primary Dx) Social History Tobacco Use Types Packs/Day Years Used Date Smoking Tobacco: Never Smokeless Tobacco: Never Alcohol Use Standard Drinks/Week Comments Not Currently 0 (1 standard drink = 0.6 oz pur e alcohol) Dental Answer Date Recorded Dental: Regular Dentist Unknown 06/19/20 24 Comments Unknown Sex and Gender Information Value Date Recorded Sex Assigned at Not on file Legal Sex Female 1:12 PM CDT Gender Identity Not on file Sexual Orientation Not on file documented as of this encounter Plan of Treatment Upcoming Encounters Date Type Department Care Team (Late st Contact Info) Description 08/05/2024 12:30 PM INCOMING INSPECTOR Appointment Department of Radiation Oncology in [place], [place] [address] [place] [address] Aniyah Natarajan M.D. [address] [place] [address] Scheduled Orders Name Type Priority Associated Diagnoses Order Schedule Prior Auth Rad Tx Radiation Oncology Routine Malignant Neoplasm Of Breast Lower Outer Quadrant Female Left (HCC) Ordered: 07/02/2024 Management Visit Radiation Oncology Routine Malignant Neoplasm Of Breast Lower Outer Quadrant Female Left (HCC) 10 Occurrences starting 07/02/2024 until 10/02/2025 Scheduled Referrals Name Type Priority Associated Diagnoses Orde r Schedule Radiation Oncology - Nurse education visit (clinic) Outpatient Referral Routine Malignant Neoplasm Of Breast Lower Outer Quadrant Female Left (HCC) Expected: 07/02/2024, Expires: 10/02/2025 documented as of this encounter Results * Initial Rad Onc Treatment Planning CT Simulation without IV Contrast (07/11/2024 2:00 PM INCOMING INSPECTOR) Narrative [facility] - 07/11/2024 2:00 PM INCOMING INSPECTOR Vee Metcalf, RTT 07/11/2024 2:34 PM Initial Rad Onc Treatment Planning CT Simulation without IV Contrast Performed by: Aniyah Natarajan M.D. Authorized by: Aniyah Natarajan M.D. Aniyah Natarajan M.D. RADIATION ONCOLOGY ORDERA BLES Final Result LUIS M AMOS na documented in this encounter Visit Diagnoses Diagnosis Malignant Neoplasm Of Breast Lower Outer Quadrant Female Left (HCC)- Primary Malignant Neoplasm Of Breast Lower Outer Quadrant Female Left (HCC) documented in this encounter
--- OUTSIDE RECORDS SUMMARY | 2024-07-31 12:43 | XMS_ITS | Encounter Summary ---
Author Organization [facility] Address [address] [place] [address] Care Team Providers Care Heat Treating Bluer Name Role Phone Unavailable Primary Care Provider Unavailabl e Reason for Referral * Radiation Therapy (Routine) - Closed Specialty Diagnoses / Procedures Referred By Francisco corcoran Referred To Contact Diagnoses Malignant Neoplasm Of Breast Lower Outer Quadrant Female Left (HCC) Procedures Initial Rad Onc Treatment Planning CT Simulation without IV Contrast Aniyah Natarajan M.D. [address] [place] [phone] Phone: tel: fax: [facility] Region Referral ID Status Reason Start Date Expiration Date Visits Re quested Visits Authorized [id number] Closed 07/02/2024 07/02/2025 1 1 ICAL TESTER Reason for Visit * Radiation Therapy (Routine) - Closed Specialty Diagnoses / Procedures Referred By Francisco corcoran Referred To Contact Diagnoses Malignant Neoplasm Of Breast Lower Outer Quadrant Female Left (HCC) Procedures Initial Rad Onc Treatment Planning CT Simulation without IV Contrast Aniyah Natarajan M.D. [address] [place] [address] Phone: tel: fax: [facility] Region Referral ID Status Reason Start Date Expiration Date Visits Re quested Visits Authorized [id number] Closed 07/02/2024 07/02/2025 1 1 Encounter Details Date Type Department Care Team (Latest Contact Info) Description 07/11/2024 2:00 PM CHEMICAL TESTER - 07/11/2024 4:51 PM CHEMICAL TESTER Hospital Encounter Department of Radiation Oncology in [place], [place] [address] [place] [phone] Aniyah Natarajan M.D. [address] [place] [address] Malignant Neoplasm Of Breast Lower Outer Quadrant Female Left (HCC) Social History Tobacco Use Types Packs/Day Years [...] on file documented as of this encounter Medications at Time of Discharge atenoloL (Tenormin) 50 mg tablet Take 50 mg by mouth daily. atorvastatin (Lipitor) 20 mg tablet Take 20 mg by mouth at bedtime. documented as of this encounter Procedure Notes * Vee Metcalf, RTT - 07/11/2024 2:00 PM CSTAssociated Order(s): Initial Rad Onc Treatment Planning CT Simulation without IV Contrast Pre-Procedure Diagnose(s): Malignant Neoplasm Of Breast Lower Outer Quadrant Female Left (HCC) Post-Procedure Diagnose(s): Malignant Neoplasm Of Breast Lower Outer Quadrant Female Left (HCC) Initial Rad Onc Treatment Planning CT Simulation without IV Contrast Performed by: Aniyah Natarajan M.D. Authorized by: Aniyah Natarajan M.D. Simulation was performed under physician supervision based on physician order in preparation for radiation therapy. Physician was immediately available to provide assistance and direction throughout the procedure. Written consent for treatment was completed or confirmed. The patient was appropriately identified and placed in the treatment position using the necessary immobilization to ensure a reproducible treatment position. Reference chavarria were placed to facilitate marking of isocenter. Area scanned:Chest Contrast used for the simulation procedure: None Patient position:head first supine and arms up Custom immobilization: Breast board Motion management: Breath hold scan Bolus: No CT guidance: Following positioning of the patient, a series of slices was obtained to be utilized in treatment planning. CT images were transferred to the [facility] treatment planning system, after a reference isocenter was determined and marked. Segmentation and treatment planning will take place prior to treatment delivery. Patient set up and imaging was appropriate and completed without incident. Cement Loader use:No Cosigned by Aniyah Natarajan M.D. at 07/11/2024 4:51 PM CHEMICAL TESTER ICAL TESTER ICAL TESTER Associated attestation - Aniyah Natarajan M.D. - 07/11/2024 4:51 PM CHEMICAL TESTER I was present during all critical and aldrich portions of the procedure(s) and immediately available [facility] the entire duration. See note for details. documented in this encounter Plan of Treatment Upcoming Encounters Date Type Department Care Team (Late st Contact Info) Description 08/05/2024 12:30 PM CHEMICAL TESTER Appointment Department of Radiation Oncology in [place], [place] [address] [place] [phone] Aniyah Natarajan M.D. [address] [place] [address] documented as of this encounter Procedures Procedure Name Priority Date/Time Associated Diagnosis Comments INITIAL RAD ONC TREATMENT PLANNING CT SIMULATION Routine 07/11/2024 2:00 PM CHEMICAL TESTER Malignant Neoplasm Of Breast Lower Outer Quadrant Female Left (HCC) documented in this encounter Results * Initial Rad Onc Treatment Planning CT Simulation without IV Contrast (07/11/2024 2:00 PM CHEMICAL TESTER) Narrative [facility] - 07/11/2024 2:00 PM CHEMICAL TESTER Vee Metcalf RTT 07/11/2024 2:34 PM Initial Rad Onc Treatment Planning CT Simulation without IV Contrast Performed by: nAiyah Natarajan M.D. Authorized by: Aniyah Natarajan M.D. Aniyah Natarajan M.D. RADIATION ONCOLOGY ORDERA BLES Final Result AKRON DANDRE na documented in this encounter Visit Diagnoses Diagnosis Malignant Neoplasm Of Breast Lower Outer Quadrant Female Left (HCC) documented in this encounter
--- OUTSIDE RECORDS SUMMARY | 2024-07-31 12:44 | XMS_ITS | Clinical Summary ---
Author Organization [employer] [facility] Address [place], [place] [address] Care Team Providers Care Staff Engineer Name Role Phone VotelRicky MD Primary Care Provider + Allergies Active [...] Encounters Date Type Department Care Team Description 07/02/2024 3:15 PM CDT Office Visit [facility] [address] [place] [address] Destiny Briones MD Post-op (Left lumpectomy x2 06/06/24) 07/02/2024 Travel 06/28/2024 Travel 06/10/2024 Orders Only [facility] [address] [place] [address] [address] Ricky Flynn MD 1 scan: (1-Ord) [facility], CLIP PLACEMENT LT, 06/06/2024 06/10/2024 Orders Only [facility] [address] [place] [address] Destiny Briones MD 1 scan: (1-Ord) [facility], US BREAST NEEDLE LOC LT , 06/06/2024 06/07/2024 Travel 06/06/2024 8:00 AM CDT Office Visit [facility] [address] [place], [place] [address] Destiny Briones MD 06/06/2024 Lab Requisition [facility] [phone] Destiny Briones MD 06/06/2024 Orders Only [facility] Scanner 1 scan: (1-Ord) [facility], MM SURGICAL SPECIMEN LT, 06/06/2024 06/06/2024 Orders Only [facility] Scanner 1 scan: (1-Ord) [facility], BREAST LUMPECTOMY X2. LT AXILLARY SENTINEL LYMPH NODE BIOPSY., 06/06/2024 05/24/2024 Telephone [facility] [address] [place] [address] Destiny Briones MD Another order needed 05/23/2024 2:30 PM CDT Preop Visit [facility] [address] [place] [address] Ricky Flynn MD Preoperative Exam ([place], Dr. Briones, 06/06/24, left breast lump) 05/23/2024 Telephone [facility] [address] [place] [address] Destiny Briones MD Error-please disregard 05/23/2024 Travel 05/21/2024 3:15 PM CDT Office Visit [facility] [address] [place] [place] [address] Destiny Briones MD Consult (Left breast cancer) 05/21/2024 Travel 05/13/2024 Orders Only [facility] [address] [place] [address] Ricky Flynn MD 2 scans: (2-Ord) [facility], US GUIDED BREAST BIOPSY LT, 05/10/2024 05/10/2024 Orders Only [facility] Scanner 1 scan: (1-Ord) [facility], MM CLIP PLACEMENT LT, 05/10/2024 05/10/2024 Lab Requisition [facility] [phone] Unknown, Doctor 05/10/2024 Lab Requisition [facility] [phone] Unknown, Doctor 05/02/2024 2:30 PM CDT Ancillary Procedure [facility] [address] [place] [address] 05/02/2024 2:00 PM CDT Ancillary Procedure [facility] [address] [place] [address] 05/02/2024 Ancillary Orders [facility] [address] [place] [address] Ricky Flynn MD 05/02/2024 Travel from Last 3 Months Immunizations Name [...] 0 03/06/2024 Social Connections Answer Date Recorded Do you often feel lonely or isolated from those around you? 0 03/06/2024 Financial Resource Strain Answer Date R ecorded Difficulty of Paying Living Expenses 3 03/06/2024 Difficulty of Paying Living Expenses Not on file 03/06/2024 Food Insecurity Answer Date Recorded Do you worry your food will run out before you are able to buy more? 1 03/06/2024 Transportation Needs Answer Date Record ed Does lack of transportation keep you from medica l appointments? 1 03/06/2024 Does lack of transportation keep you from work, meetings or getting things that you need? 1 03/06/2024 Housing Stability Answer Date Recorded What is your housing situation today? 1 03/06/2024 Sex and Gender Information Value [...] Sign Reading Time Taken Comments Blood Pressure 147/72 07/02/2024 3:16 PM CDT Pulse 66 07/02/2024 3:16 PM CDT Temperature 37.2 C (99 F) 05/23/2024 2:22 PM CDT Respiratory Rate 16 04/04/2023 9:32 AM CDT Oxygen Saturation 95% 07/02/2024 3:16 PM CDT Inhaled Oxygen Concentration - - Weight 74.5 kg (164 lb 3.2 oz) 07/02/2024 3:16 P M CDT Height 145.9 cm (4' 9.44) 05/23/2024 2:22 PM CD T Body Mass Index 34.99 05/23/2024 2:22 PM CDT Plan of Treatment Health Maintenance Due Date Last Done Comments [...] Procedure Name Priority Date/Time Associated Diagnosis Comments LAB TRACKING EVENT Routine 06/06/2024 10 :15 AM CDT PATH TISSUE EXAM Routine 06/06/2024 10:1 5 AM CDT XR MAMMO POST CLIP PLCMT LT Routine 06/06/2024 12:00 AM CDT Abnormal mammogram SCAN-MAMMOGRAPHY REPORT 06/06/2024 12:00 AM CDT US BREAST LOCALIZATION NEEDLE W JOE W GUIDE LEFT [place] 06/06/2024 12:00 AM CDT Malignant neoplasm of lower-outer quadrant of left breast of female, estrogen receptor positive (HC) SCAN-OPERATIVE/PROCED URE REPORT 06/06/2024 12:00 AM CDT EKG 12 LEAD Routine 05/24/2024 11:47 AM CDT Pre-op exam PA READING EKG - NO CHARGE, COMP ONLY [...] [place] 05/02/2024 2:22 PM CDT Abnormal mammogram LIPID PANEL W REFLEX MEASURED LDL Routine 03/06/2024 8:59 AM CDT Screening cholesterol level COLONOSCOPY 04/04/2023 8:33 AM CDT XR DXA BONE DENSITY 2 SITES AXIAL Routine 03/01/2023 11:30 AM CDT Menopause from Last 3 Months or Most Recently Relevant to Health Maintenance Results * LAB TRACKING EVENT (06/06/2024 10:15 AM CDT) Only the most recent of3 resultswithin the time period is included. Other (Other) Client Collect / Unknown 06/06/2024 10:15 AM CDT 06/06/2024 10:29 PM CDT Destiny Briones MD LAB BILL ONLY [facility] [address] [place] [address], * PATH TISSUE EXAM (06/06/2024 10:15 AM CDT) Case Report Pathology Report Case: [id number] Authorizing Provider: Destiny Briones MD Collected: 06/06/2024 1015 [facility]ing [facility] Received: 06/07/2024 0911 Pathologist: Cleo Wheat MD Specimens: A) - Left Breast Lump B) - Left Breast Lump C) - Left Axillary [place] Lymph Node 1 D) - Left Breast E) - Left Breast 07/09/2024 9:21 AM [facility]AL LABORATORY Amendment 07/02/2024-The tissue was submitted to [facility] for Oncotype DX for Breast Cancer testing. Please see attached scanned report. 07/08/2024-The tissue was submitted to [facility] for Oncotype DX for Breast Cancer testing. Please see attached scanned report. 07/09/2024 9:21 AM [facility] Final Diagnosis A) LEFT BREAST, 6:00, LUMPECTOMY: 1. Tumor #1: Invasive ductal carcinoma a. Size: 11 mm b. Shira grade: II of III c. DCIS: Not identified in the specimen 2. Breast Ancillary Testing: (per [id number], part A) a. Hormone Receptors: Estrogen receptor: [...] fibrocystic change and benign skeletal muscle B) LEFT BREAST, 5:00, LUMPECTOMY: 1. Tumor #2: Invasive mucinous carcinoma a. Size: 16 mm b. [place] grade: II of III c. DCIS: Present (focal), solid type, nuclear grade 2 2. Breast Ancillary Testing: (per [id number], part B) a. Hormone Receptors: Estrogen receptor: [...] atypical ductal hyperplasia and fibrocystic change C) LEFT AXILLARY SENTINEL LYMPH NODE, 1, BIOPSY: 1. Negative for malignancy in 3 lymph nodes (0/3) D) LEFT BREAST, ANTERIOR MARGIN AT 6:00, RE-EXCISION WITH EVALUATION OF SURGICAL MARGINS: 1. Adipose tissue and skin 2. Negative for malignancy E) LEFT BREAST, ANTERIOR MARGIN AT 5:00, RE-EXCISION WITH EVALUATION OF SURGICAL MARGINS: 1. Adipose breast parenchyma with proliferative fibrocystic change 2. Negative for atypia or malignancy 07/09/2024 9:21 AM [facility] [place] [facility] [employer] [facility]-C ENTRAL LABORATORY Amendment electronically signed by Cleo Wheat MD on 07/09/2024 at 9:21 AM Amendment electronically signed by Isamar Giron MD on 07/02/2024 at 4:42 PM Comment Tumor #2 is used for synoptic staging as it is the larger tumor. 07/09/2024 9:21 AM [facility] Clinical Information 9 cm between 2 left breast invasive carcinomas. At 6:00 is an 11 mm mass. At 5:00 is a 9 mm mass. 07/09/2024 9:21 AM [facility] Gross Description A) Received fresh, labeled with the patient's name and left breast mass 6:00, is a 31 gram, 6 3 (ML) x 5.3 (SI) x 1.8 (AP) cm wirelocalized breast lumpectomy specimen. The wire is identified within the specimen. The specimen is inked by the surgical staff in the OR as follows: Anterior--[place] Posterior--Black Superior--Blue Inferior--Red Medial--Green Lateral--Yellow The specimen is serially sectioned from lateral to medial into 10 slices revealing a 1.2 (ML) x 1.3 (SI) x 1.1 (AP) cm whitney-white, indurated, ill-defined mass within slice(s) 3-5 with the following characteristics: Biopsy site change: Present in slices 3-4 Biopsy clip: Is grossly identified Closest margin: Anterior Distance to margins: Anterior: <0.1 cm Posterior: 1.0 cm Inferior: 1.3 cm Superior: 1.2 cm Medial: 2.8 cm Lateral: 2.3 cm The remaining cut surfaces consist of approximately 90% adipose tissue and 10% fibrous tissue. No other lesions are identified. Radiation / Chemistry Technician sections are submitted as follows: 1. Slice 1 (perpendicular sections of lateral margin) 2. Slice 2 3-5. Entire slice 3 with mass 6-8. Entire slice 4 with mass 9-11. Entire slice 5 with mass 12. Slice 6 13. Slice 7 14. Slice 8 15. Entire slice 9 16. Entire slice 10 (perpendicular sections of medial margin) An annotated photograph including sections taken is uploaded to the case. Time removed from patient: 1015 Time placed in formalin: 1040 Date removed and placed in formalin: 06/06/2024 Cold ischemic time < 60 minutes. The specimen was fixed in formalin for a minimum of 6 hours and not longer than 72 hours. B) Received fresh, labeled with the patient's name and left breast mass 5:00, is a 36 gram, 10.0 (ML) x 4.5 (SI) x 1.6 (AP) cm wire localized breast lumpectomy specimen. The wire is identified within the specimen. The specimen is inked by the surgical staff in the OR as follows: Anterior--[place] Posterior--Black Superior--Blue Inferior--Red Medial--Green Lateral--Yellow The specimen is serially sectioned from lateral to medial into 15 slices revealing a 1.0 (SI) x 0.7 (AP) x 0.4 (ML) cm whitney-white indurated mass within slice(s) 4 with the following characteristics: Biopsy site change: Present in slices 4 Biopsy clip: Is grossly identified Closest margin: Anterior and posterior pectoralis fascia Distance to margins: Anterior: 0.1 cm Posterior: 0.3 cm Inferior: 1.0 cm Superior: 1.6 cm Medial: 5.8 cm Lateral: 1.2 cm The remaining cut surfaces consist of approximately 100% adipose tissue and 0 % fibrous tissue. No other lesions are identified. Radiation / Chemistry Technician sections are submitted as follows: 1. Slice 1 (perpendicular section of lateral margin) 2. Slice 2 3. Slice 3 4-6. Entire slice 4 with entire mass 7. Slice 5 8. Slice 6 9. Slice 7 10. Slice 8 11. Slice 9 12. Slice 10 13. Slice 11 14. Slice 12 15. Slice 13 16. Entire slice 14 17. Entire slice 15 (perpendicular sections of medial margin) An annotated photograph including sections taken is uploaded to the case. Time removed from patient: 1032 Time placed in formalin: 1100 Date removed and placed in formalin: 06/06/2024 Cold ischemic time < 60 minutes. The specimen was fixed in formalin for a minimum of 6 hours and not longer than 72 hours. C) Received in formalin, labeled with the patient's name and left axillary sentinel lymph node, is a 4.0 x 3.3 x 1.1 cm aggregate of whitney-yellow fibrofatty tissue fragments palpated to reveal 3 possible lymph nodes ranging from 1.0 x 1.0 x 0.5 cm up to 1.5 x 1.1 x 0.6 cm. A biopsy clip is not grossly identified within the specimen. The lymph nodes are submitted entirely as follows: 1. 1 possible lymph node, serially sectioned 2. 1 possible lymph node, serially sectioned 3-4. 1 possible lymph node, serially sectioned Time removed from patient: 1055 Time placed in formalin: 1055 Date removed and placed in formalin: 06/06/2024 Cold ischemic time < 60 minutes. The specimen was fixed in formalin for a minimum of 6 hours and not longer than 72 hours. D) Received in formalin, labeled with the patient's name and left breast mass reexcision anterior margin 6:00, is a 4.6 (ML) x 3.0 (SI) x 0.6 (AP) cm excision of yellow-whitney fibrofatty breast tissue with a 3.2 x 1.3 cm grossly unremarkable ellipse of pale-whitney skin. The specimen has been oriented as follows: Anterior--[place] Superior--Blue Inferior--Red Medial--Green Lateral--Yellow The opposing surface is inked black and does not represent a margin. The specimen is serially sectioned into 8 slices revealing whitney-yellow fatty breast parenchyma with no lesions are fibrous tissue grossly identified. The specimen is submitted entirely in 6 cassettes. Time removed from patient: 1110 Time placed in formalin: 1124 Date removed and placed in formalin: 06/06/2024 Cold ischemic time < 60 minutes. The specimen was fixed in formalin for a minimum of 6 hours and not longer than 72 hours. E) Received in formalin, labeled with the patient's name and left breast mass reexcision anterior margin 5:00, is a 6.0 (SI) x 5.0 (ML) x 1.1 (AP) cm excision of yellow-whitney fibrofatty breast tissue which has been oriented as follows: Anterior--[place] Superior--Blue Inferior--Red Medial--Green Lateral--Yellow The opposing surface is inked black and does not represent a margin. The specimen is serially sectioned into 11 slices revealing whitney-yellow fatty breast parenchyma with no lesions or fibrous tissue grossly identified. The specimen is submitted entirely as follows: 1-2. Slice 1 (perpendicular sections of superior margin) 3-4. Slice 2 5-6. Slice 3 7-8. Slice 4 9-10. Slice 5 11-12. Slice 6 13-14. Slice 7 15-16. Slice 8 17-18. Slice 9 19. Slice 10 20. Slice 11 (perpendicular sections of inferior margin) Time removed from patient: 1118 Time placed in formalin: 1124 Date removed and placed in formalin: 06/06/2024 Cold ischemic time < 60 minutes. The specimen was fixed in formalin for a minimum of 6 hours and not longer than 72 hours. [facility] 06/07/2024 07/09/2024 9:21 AM [facility]- ENTRAL LABORATORY Intraoperative Consultation A) LEFT BREAST, LUMPECTOMY, INTRAOPERATIVE CONSULTATION (Gross Evaluation Only): 1. Tumor grossly identified 2. Biopsy site change is identified grossly 3. Margins are grossly negative by <1 mm (the closest margin is anterior) Dr. Clif iL, 06/06/2024 10:40 AM B) LEFT BREAST, LUMPECTOMY, INTRAOPERATIVE CONSULTATION (Gross Evaluation Only): 1. Tumor grossly identified 2. Biopsy site change is identified grossly 3. Margins are grossly negative by 1 mm anterior and 3 mm posterior pectoralis fascia Dr. Clif Li, 06/06/2024 11:00 AM Intraoperative consultation, which may have included frozen section preparation, gross specimen examination, and/or cytology touch imprints/smears, was performed by a pathologist during the surgical procedure. This testing was performed at: [address] [address] 07/09/2024 9:21 AM [facility] Microscopic Description The final diagnosis is based on microscopic examination of appropriate sections of all specimens. 07/09/2024 9:21 AM [facility] SYNOPTIC REPORTING INVASIVE CARCINOMA OF THE BREAST: Resection INVASIVE CARCINOMA OF THE BREAST: RESECTION - All Specimens 8th Edition - Protocol posted: 08/16/2023 SPECIMEN Procedure: Excision (less than total mastectomy) Specimen Laterality: Left TUMOR Tumor Site: Clock position : 5 o'clock Tumor Site: Distance from nipple (Centimeters): 10 cm Histologic Type: Mucinous carcinoma Histologic Grade (Shira Histologic Score): Glandular (Acinar) / Tubular Differentiation: Score 3 Nuclear Pleomorphism: Score 2 Mitotic Rate: Score 1 Overall Grade: Grade 2 (scores of 6 or 7) Tumor Size: Greatest dimension of largest invasive focus (Millimeters): 16 mm Tumor Focality: Multiple foci of invasive carcinoma Number of Foci: 2 Sizes of Individual Foci in Millimeters (mm): Tumor #1: 11 mm in part A, tumor #2: 16 mm in part B (staging is based on tumor #2) Ductal Carcinoma In Situ (DCIS): Present : Negative for extensive intraductal component (EIC) Architectural Patterns: Solid Nuclear Grade: Grade II (intermediate) Necrosis: Not identified Lymphatic and / or Vascular Invasion: Not identified Dermal Lymphatic and / or Vascular Invasion: Not identified Treatment Effect in the Breast: No known presurgical therapy MARGINS Margin Status for Invasive Carcinoma: All margins negative for invasive carcinoma Distance from Invasive Carcinoma to Closest Margin: 1 mm Closest Margin(s) to Invasive Carcinoma: Posterior Margin Status for DCIS: All margins negative for DCIS Distance from DCIS to Closest Margin: Greater than: 10 mm Closest Margin(s) to DCIS: > 10 mm from all margins REGIONAL LYMPH NODES Regional Lymph Node Status: : All regional lymph nodes negative for tumor Total Number of Lymph Nodes Examined (sentinel and non-sentinel): 3 Number of [place] Nodes Examined: 3 pTNM CLASSIFICATION (AJCC 8th Edition) Reporting of pT, pN, and (when applicable) pM categories is based on information available to the pathologist at the time the report is issued. As per the AJCC (Chapter 1, 8th Ed.) it is the managing physician s responsibility to establish the final pathologic stage based upon all pertinent information, including but potentially not limited to this pathology report. pT Category: pT1c T Suffix: (m) pN Category: pN0 N Suffix: (sn) Comment(s): Tumor 1: A4, Tumor #2: B5 07/09/2024 9:21 AM [facility] ENTRAL LABORATORY Additional Information Interpreted at [facility] - [address] [facility] [address], [place] [address] 07/09/2024 9:21 AM [facility] ENTRAL LABORATORY Other (Left Breast Lump) 06/06/2024 10:15 AM CDT 06/07/2024 9:11 AM CDT Specimen (specimen) (Left Breast Lump) 06/06/2024 10:15 AM CDT 06/07/2024 9:11 AM CDT Specimen (specimen) (Left Axillary [place] Lymph Node 1) 06/06/2024 10:15 AM CDT 06/07/2024 9:30 AM CDT Specimen (specimen) (Left Breast) 06/06/2024 10:15 AM CDT 06/07/2024 9:30 AM CDT Specimen (specimen) (Left Breast) 06/06/2024 10:15 AM CDT 06/07/2024 9:30 AM CDT Destiny Briones MD PATHOLOGY/CYTOLO GY [facility] [address] [place] [address], [place] * US BREAST LOCALIZATION NEEDLE W JOE W GUIDE LEFT (06/06/2024 12:00 AM CDT) Anatomical Region Laterality Modality Breast Left Left Ultrasound Destiny Briones MD US * XR MAMMO POST CLIP PLCMT LT (06/06/2024 12:00 AM CDT) Anatomical Region Laterality Modality BREASTS N/A Mammography Ricky Flynn MD MAMMO * SCAN-OPERATIVE/PROCEDURE REPORT (06/06/2024 12:00 AM CDT) Scanner OTHER * SCAN-MAMMOGRAPHY REPORT (06/06/2024 12:00 AM CDT) Anatomical Region Laterality Modality Other Scanner OTHER * EKG 12 LEAD (05/24/2024 11:47 AM CDT) Ricky Flynn MD EKG ORD * PA READING EKG - NO CHARGE, COMP ONLY (05/24/2024 11:46 AM CDT) Ricky Flynn MD PB - PROVIDER RE ADINGS * PATH BREAST CORE BIOPSY (05/10/2024 9:20 AM CDT) Case Report Pathology Report Case: [id number] Authorizing Provider: Unknown, Doctor Collected: 05/10/2024 09 [facility] Received: 05/11/2024 0237 Pathologist: Dennise Vasquez MD Specimens: A) - Left Breast Core Ultrasound Biopsy B) - Left Breast Core Ultrasound Biopsy 05/14/2024 2:56 PM CDT [facility] Amendment 05/14/2024 - Amendment issued to incorporate ancillary studies. 05/14/2024 2:56 PM CDT [facility] Final Diagnosis A) LEFT [...] differentiation a. Shira grade: II of III; Shira score: 6 of 9 b. Angio-lymphatic invasion: Absent c. Associated DCIS: Absent 2. Breast Ancillary Testing: a. Hormone Receptors: Estrogen receptor: Positive (99%, strong staining) Progesterone receptor: Positive (73%, moderate staining) b. HER2 by IHC: Negative (0-ultralow by manual morphometry) c. Ki-67: 13% by image analysis 05/14/2024 2:56 PM CDT [facility] ENTRAL LABORATORY Amendment electronically signed by Cleo [...] with Dr. Davidson 05/14/2024 2:56 PM T [facility] Clinical Information A) Left breast lobulated, circumscribed, hypoechoic mass measuring 11 mm at 6:00, 10 cm from the nipple (#1). B) Left breast lobulated, circumscribed, hypoechoic mass measuring 9 mm at 5:00, 10 cm from the nipple (#2). Distance between sites: 9 cm 05/14/2024 2:56 PM T [facility] ENTRAL LABORATORY Gross Description A) Label: Patient's name and L breast 6:00 #1 Description: 6 Fibrofatty core biopsies Size: 0.7-1.3 cm in length by 0.2 cm in diameter Ink color: Green The specimen is submitted in toto in two cassettes. Cold ischemic time: Less than 60 minutes, meets current ASCO/CAP guidelines. The specimen was fixed in formalin for [...] than 60 minutes, meets current ASCO/CAP guidelines. The specimen was fixed in formalin for a minimum of 6 hours and not longer than 72 hours. [facility] 05/11/2024 05/14/2024 2:56 PM T [facility] Microscopic Description The final diagnosis is based on microscopic examination of appropriate sections of all specimens. A) The presence of green ink is confirmed on tissue sections. B) The presence of blue ink is confirmed on tissue sections. 05/14/2024 2:56 PM CDT [facility]-C ENTRAL LABORATORY SYNOPTIC REPORTING Breast Biomarker Reporting Template BREAST BIOMARKER REPORTING TEMPLATE - A Protocol posted: 08/16/2023 Test(s) Performed: Estrogen Receptor (ER) Status: Positive (greater than 10% of cells demonstrate nuclear positivity) Percentage of Cells with Nuclear Positivity: 100 % Average Intensity of Staining: Strong Test Type: Laboratory-develop ed test Primary Antibody: SP1 Test(s) Performed: Progesterone Receptor (PgR) Status: Positive Percentage of Cells with Nuclear Positivity: 98 % Average Intensity of Staining: Strong Test Type: Laboratory-develop ed test Primary Antibody: 16 Test(s) Performed: HER2 by Immunohistochemist ry: Negative (Score 1+) Test Type: Laboratory-develop ed test Primary Antibody: 4B5 Test(s) Performed: Ki-67 Ki-67 Percentage of Positive Nuclei: 4 % Primary Antibody: MIB1 Cold Ischemia and Fixation Times: Meet requirements specified in latest version of the ASCO / CAP Guidelines Testing Performed on Block Number(s): A1 METHODS Fixative: Formalin Image Analysis: Performed Method: Aperio morphometric analysis Biomarkers Scored by Image Analysis: ER Biomarkers Scored by Image Analysis: PgR Biomarkers Scored by Image Analysis: Ki-67 Comment(s): 6,289 NUCLEI ANALYZED FOR KI67 Breast Biomarker Reporting Template BREAST BIOMARKER REPORTING TEMPLATE - B Protocol posted: 08/16/2023 Test(s) Performed: Estrogen Receptor (ER) Status: Positive (greater than 10% of cells demonstrate nuclear positivity) Percentage of Cells with Nuclear Positivity: 99 % Average Intensity of Staining: Strong Test Type: Laboratory-develop ed test Primary Antibody: SP1 Test(s) Performed: Progesterone Receptor (PgR) Status: Positive Percentage of Cells with Nuclear Positivity: 73 % Average Intensity of Staining: Moderate Test Type: Laboratory-develop ed test Primary Antibody: 16 Test(s) Performed: HER2 by Immunohistochemist ry: Negative (Score 0) Test Type: Laboratory-develop ed test Primary Antibody: 4B5 Test(s) Performed: Ki-67 Ki-67 Percentage of Positive Nuclei: 13 % Primary Antibody: MIB1 Cold Ischemia and Fixation Times: Meet requirements specified in latest version of the ASCO / CAP Guidelines Testing Performed on Block Number(s): B1 METHODS Fixative: Formalin Image Analysis: Performed Method: Aperio morphometric analysis Biomarkers Scored by Image Analysis: ER Biomarkers Scored by Image Analysis: PgR Biomarkers Scored by Image Analysis: Ki-67 Comment(s): 1,198 NUCLEI ANALYZED FOR KI67 05/14/2024 2:56 PM CDT [facility] [employer] [facility] Additional Information Interpreted at [facility] - [address] [place] [address] S. [facility] [address], [place] [address] Immunohistochemist ry controls were reviewed and approved [...] in eligibility currently). 05/14/2024 2:56 PM CDT [facility] [employer] [facility] Other (Left Breast Core Ultrasound Biopsy) 05/10/2024 9:20 AM CDT 05/11/2024 2:37 AM CDT Specimen (specimen) (Left Breast Core Ultrasound Biopsy) 05/10/2024 9:37 AM CDT 05/11/2024 2:43 AM CDT Doctor Unknown PATHOLOGY/CYTOLOGY Performing Organization Address City/State/[facility] Co de Phone Number [facility] [address] [place] [address], [place] * US BIOPSY BREAST NEEDLE W [...] released immediately into your electronic medical record. You may view this report before your referring provider. If you have questions, please contact your health care provider. LEFT BREAST LIMITED ULTRASOUND, 05/02/2024 PLEASE SEE [id number] FOR COMBINED REPORT WITH LEFT DIGITAL MAMMOGRAM [...] results in an easy to read format. If you have questions about your results, please contact your referring provider. Narrative 05/03/2024 3:09 PM CDT For Patients: As a result of the Cures Act, medical imaging exams and procedure reports are released immediately into your electronic medical record. You may view this report before your referring provider. If you have questions, please contact your [...] 6 mm. Ricky Flynn MD MAMMO * LIPID PANEL W REFLEX MEASURED LDL (03/06/2024 8:59 AM CDT) CHOLESTEROL,TOTAL 166 100 - 199 mg/dL 03/06/2024 6:49 PM CDT [facility] Comment: Cholesterol, Total Reference Ranges Desirable <200 mg/dL Borderline 200-239 mg/dL High >=240 mg/dL TRIGLYCERIDES 132 <150 mg/dL 03/06/2024 6:49 PM CDT [facility] HDL CHOLESTEROL 52 >40 mg/dL 6:49 PM CDT [facility] NON-HDL CHOLESTEROL 114 <145 mg/dl 03/06/2024 6:49 PM CDT [facility] CHOL/HDL RATIO 3.19 <4.50 03/06/2024 6:49 PM CDT [facility] LDL CHOLESTEROL 88 <=130 mg/dL 03/06/2024 6:49 PM CDT [facility] VLDL CHOLESTEROL 26 <=30 mg/dL 03/06/2024 6:49 PM CDT [facility] PROVIDER ORDERED STATUS RANDOM 03/06/2024 6:49 PM CDT [facility] Blood BLOOD SPECIMEN / Unknown Venipuncture / Unknown 03/06/2024 8:59 AM CDT 03/06/2024 9:00 AM CDT Ricky Flynn MD CHEMISTRY [facility] [address] [place] [address], * COLONOSCOPY (04/04/2023 8:33 AM CDT) 04/04/2023 8:33 AM CDT Narrative Transcriptions Saman Branch MD - 04/04/2023 9:20 AM CDT Patient Name: Hayley Gave Procedure Date: 04/04/2023 Gender: Female Date of [...] adequate candidate for conscious sedation. The PCF-[id number] [id number] was passed through the anus and advanced [...] 8:33 AM Procedure Code(s): --- Professional --- 28518, Colonoscopy, flexible; with removalof tumor(s), polyp(s), or other lesion(s) bysnare technique Diagnosis Code(s): --- Professional --- Z12.11, Encounter for screening formalignant neoplasm of colon D12.0, Benign neoplasm of cecum D12.1, Benign neoplasm of appendix D12.2, Benign neoplasm of ascending colon CPT copyright 2021 [employer]. All rights reserved. The codes documented in this report are preliminary and upon ski lift operator reviewmay be revised to meet current compliance [...] recommended in 3-5 years. Roma Knox PA-C [facility] 03/09/2023 Narrative 03/09/2023 1:00 PM CDT For Patients: Results are automatically released to your [facility] account once available, in compliance with federal regulations. This means that you may see your results before your provider has had a chance to review them. Please allow 2-3 business days for your provider to comment on the results. XR DXA Bone Mineral Density (BMD) EXAM LOCATION: [address] [address] PATIENT NAME: Hayley Castanon DATE OF : 1950 EXAM DATE: 03/01/2023 REQUESTING PROVIDER: Ricky Flynn MD GENDER AT : female HEIGHT: 4' 9.5 (03/01/2023) WEIGHT: 163 lb 3.2 oz (03/01/2023) MENOPAUSAL STATUS: Postmenopausal RACE/ETHNICITY: White RISK FACTORS: White Race CURRENT MEDICATION FOR BONE LOSS: NONE INDICATION: Follow-up of existing osteopenia and Post-Menopause COMPARISON DATE(S): 2019 DXA scans are compared to prior studies for a patient only when the two (or more) studies were performed on the same scanner. It is not possible to compare data generated on one scanner to data from another because there are not standards in DXA equipment. This applies even if the two scanners are made by the same hospital librarian. PROCEDURE: Dual-energy x-ray absorptiometry performed with routine technique. Reporting is completed in the form of a T-score. The T-score represents the standard deviation from peak bone mass based on young healthy adult. A Z-score is used for diagnosis in premenopausal women, and for men under the age of 50. FINDINGS: RESULT LUMBAR SPINE L2 - L4 BMD: 0.969 g/cm2 T-Score: - 2.0 Z-Score: - 0.5 Change from prior in 2019: Decrease 6.6%. RESULTS FEMUR Left femoral neck BMD: 0.806 g/cm2 T-Score: - 1.7 Z-Score: + 0.0 Change from prior in 2019: Decrease 3.8%. Right femoral neck BMD: 0.794 g/cm2 T-Score: - 1.8 Z-Score: - 0.1 Change from prior in 2019: Decrease 0.9%. Left hip BMD: 0.873 g/cm2 T-Score: - 1.1 Z-Score: + 0.4 Change from prior in 2019: Decrease 2.3%. Right hip BMD: 0.857 g/cm2 T-Score: - 1.2 Z-Score: + 0.3 Change from prior in 2019: Decrease 5.5%. WHO criteria: Normal: T-score at or above -1 SD Osteopenia: T-score between -1.1 and -2.4 SD Osteoporosis: T-score at or below -2.5 SD FRAX RISK CALCULATION (USED FOR OSTEOPENIA ONLY): 10-year probability of major osteoporotic fracture: 11.0%. 10-year probability of hip fracture: 2.3%. Ricky Flynn MD DEXA from Last 3 Months or Most Recently Relevant to Health Maintenance Care Teams Staff Engineer Relationship Specialty Start Date End Date Ricky Flynn MD [address] [place] [address] PCP - General 06/27/06
--- NOTE | 2024-07-31 13:00 | CRLHL7_ITS ---
For Patients: As a result of the Century Cures Act, medical imaging exams and procedure reports are released immediately into your electronic medical record. You may view this report before your referring provider. If you have questions, please contact your health care provider. DXA BONE MINERAL DENSITY STUDY Reason for exam: Screening. Breast cancer. Current height (in): 57.5. Weight (lb): 160. Menopause age: 53. Ethnicity: White. 1. Have you had a previous hip or vertebral fracture? No. 2. Have you had any fractures during your adult life which did not result from significant trauma (e.g., auto accident)? No. 3. Did either of your parents have a hip fracture? No. 4. Do you smoke? No. 5. Have you ever taken Glucocorticoids? No. 6. Do you have rheumatoid arthritis? No. 7. Do you have secondary osteoporosis? No. 8. Do you drink 3 or more alcoholic drinks per day? No. 9. Are you being treated for osteoporosis? No. 10. Have you ever taken any of the following medications: Actonel, Evista, Fosamax, Miacalcin, Reclast, Boniva, Forteo, HRT (i.e., estrogen/hormone therapy), Protelos, Prolia, Vitamin D, Calcium, other ??? please specify. ANSWER: Yes, vitamin D and calcium. 11. Do you have any of the following medical conditions: Anorexia or bulimia, asthma or emphysema, end stage renal disease, hyperparathyroidism, any seizure disorders, cancer, inflammatory bowel diseases, hysterectomy, other ??? please specify. ANSWER: Yes, cancer. 12. What was your maximum height (inches)? 57.5. 13. Do you perform weight bearing exercise regularly? No. 14. Do you regularly consume dairy products? No. 15. Do you drink caffeinated beverages? Yes. 16. At what age did your period start? 11. 17. Are you premenopausal? No. 18. How many full-term pregnancies have you had? 3. 19. Have you ever missed your period for more than 6 months in a row (not including or menopause)? No. TECHNIQUE: Bone mineral density study was performed using the [employer]. FINDINGS: The results of the study expressed as bone mineral density (BMD) are as follows: Lumbar spine L2 to L4: BMD: 0.822 g/cm2. T-score: -2.3. Z-score: 0.2 Neck Left: BMD: 0.655 g/cm2. T-score: -1.7. Z-score: 0.4 Right: BMD: 0.667 g/cm2. T-score: -1.6. Z-score: 0.5 Total Left: BMD: 0.816 g/cm2. T-score: -1.0. Z-score: 0.8 Right: BMD: 0.826 g/cm2. T-score: -0.9. Z-score: 0.9 IMPRESSION: Osteopenia. *Comparison exams done prior to 02/2020 were performed on different unit, [employer]. FRAX 10-year Fracture Risk Major Osteoporotic Fracture: <0.1% Hip Fracture: <0.1% Reported Risk Factors: [place] () Neck BMD=0.655, BMI=34.0 Andrew Rai M.D. Diagnostic Radiologist [email or web address] LAVERNE/sondra amaro/Dictated by: Andrew Rai MD @ 08/02/2024 12:24:00 PM (Electronically Signed)
== END 2024-07-31 12:42 | disposition home or self-care (01) ==
LOC: RAD 12:42
PROVIDERS: PCP Family Medicine; Visit Provider Internal Medicine Hematology & Oncology
DX: Z13.820 Encounter for screening for osteoporosis (principal); M85.89 Other specified disorders of bone density and structure, multiple sites; N95.9 Unspecified menopausal and perimenopausal disorder
CPT/HCPCS: 77080

== ENCOUNTER 2024-11-04 07:30 | Outpatient (RCR) | payer MEDICARE, SELFPAY ==
--- NOTE | 2024-06-24 14:25 | ONC.NURNOTE ---
-Request for Oncotype testing submitted online to [facility]. -Radiation Oncology referral and supporting documents faxed to [facility]. They will call patient to schedule.
--- NOTE | 2024-07-08 12:36 | ONC.NURNOTE ---
Call to patient to discuss her Oncotype Dx scores. Patient informed that her results do not indicate that she would benefit from chemotherapy. Reports faxed to radiation oncology. She will consult with them 07/11. Patient is scheduled for her DEXA 07/[address] Duran will see her in follow up 08/05 to review results and discuss endocrine therapy. Patient verbalizes understanding.
--- NOTE | 2024-08-08 16:15 | ONC.NURNOTE ---
Patient called to report that her Anastrozole was going to be $1100 at the pharmacy. She does not have prescription drug coverage. I talked to Cyrus and her about the Good Rx program and they can get Anastrozole at [facility] or [email or web address] for approximately $19 per month. Patients will print the coupon and bring it to their pharmacy. I encouraged them to call back if they continue to have issues. (At this time, Letrozole is the only AI [facility].)
== END 2024-12-21 23:59 | disposition home or self-care (01) ==
LOC: CCIC 07:30
PROVIDERS: PCP Family Medicine; Visit Provider Internal Medicine Hematology & Oncology
DX: C50.912 Malignant neoplasm of unspecified site of left female breast (principal); Z17.0 Estrogen receptor positive status [ER+]; M85.80 Other specified disorders of bone density and structure, unspecified site; Z79.811 Long term (current) use of aromatase inhibitors
CPT/HCPCS: 99202; 99204; 99205; 99214; 99215; G0463

== ENCOUNTER 2024-12-31 10:15 | Outpatient (RCR) | payer MEDICARE, SELFPAY ==
--- NOTE | 2024-07-03 15:18 | PT.OPEX ---
PT [place] [facility] PT [facility] Outpatient Eval Start: 07/03/24 14:17 Freq: Status: Active Protocol: Document 07/03/24 14:18 ENM (Rec: 07/03/24 14:55 ENM [id number]) E-signed By Lillie Pisano, DPT Physical Therapy Outpatient Evaluation Insurance Information Recert Due Date 10/01/24 Insurance Name Medicare B Medical Diagnosis malignant neoplasm of left outer quadrant of left female breast estrogen receptor positive Treating Diagnosis left shoulder pain, decreased shoulder ROM, chest tightness Referring MD Briones Subjective Subjective Patient presents to PT 1 month s/p left breast lumpectomy DOS 06/06 for invasive ductal carcinoma ERPR+HER2-. Three lymph nodes were taken out which were negative. Is not sure if she will need chemo or radiation. She has been doing ok after surgery. Is back to doing everything. Sometimes will get a little pain through the axilla. She stays busy with housework. Has been trying to use the treadmill and bike at home. Pain Comments 2/10 Current Work Status Retired Objective Other/Pertinent Objective AROM in standing Flexion L 166 with strain in back of shoulder R 177 Abduction L 175 R 180 Palpation: Moderate tissue restrictions at left inframammary fold, mild restrictions at axillary scar Observation/swelling: both incisions are healing well no bruising present Cording- Functional Test Performed & Score Eval SPADI: pain 2/50 disability 3/80 Assessment Assessment/Impression Patient presents to PT for her 4 week post-operative evaluation after left lumpectomy for breast cancer ERPR+ HER2-. She is not sure if she will need chemo or radiation yet. Patient is feeling minimal pain 2/10 now. Primary discomfort is tightness through chest and axilla. She currently presents with moderate tissue restrictions at breast along incisions and decreased ROM that will benefit from skilled care, including therapeutic exercise, manual therapy, neuromuscular education, self- care training and HEP training , in order to return her to her prior level of function and comfort. Primary Functional Limitations discomfort with end range of shoulder motion Plan of Care Rehabilitation Potential Good Physical Therapy Goals In 4-6 visits: 1. Restore shoulder AROM, as measured at pre-operative evaluation, after initial recovery period to improve 1 and 2-handed functional activity ability. (This will reduce during radiation therapy inflammatory phase, if needed.) 2. Restore functional scoring using SPADI assessment tool to pre-operative amounts to ensure full return to baseline function. 3. Restore full upright posture per patient perception or compared to pre-operative findings. Coordination/Communication With Referral Source Treatment Plan/Direct Interventions Ice/Cold/Vasopneumatic,Joint Mobilization,Manual Therapy, Neuromuscular Re-ed,Self-Care/ Home Management,Therapeutic Activities,Therapeutic Exercises Frequency/Duration 1-2x a week for 4-6 visits Patient Will Be Discharged From Therapy Completion of LTG(s), Independent w/HEP Evaluation Billing Untimed Code Treatment Minutes 16 Complexity Low Certification Information Initial Certification Date 07/03/24 Ending Certification Date 10/01/24 Provider Signature Required Yes Provider Signature Shows Agreement With POC & Medical Necessity Physician NPI Number Write NPI# Here Physician Comment/Change : Physician Signature & Date Requested Please Sign/Date Here
--- NOTE | 2024-10-01 13:44 | OT.OPLDN2 ---
OT Outpatient Lymphedema Daily Note OT Outpatient Lymphedema Daily Note* Start: 06/04/24 07:34 Freq: Status: Active Protocol: Document 10/01/24 12:30 AMB (Rec: 10/01/24 13:43 AMB [id number]) E-signed By Juani Suresh, OTR/L, CLT, ADAPTIVE PHYSICAL EDUCATION TEACHER Type of Note Type of Note Type of Note Daily Note Visit Number 3 Comments 11/29/24 Insurance Information Insurance Information Insurance Information Blue Cross/Blue Shield, Medicare B OT OP Lymphedema Daily/Progress Note Current Condition/Medical Diagnosis Referring Provider Dr Briones Treatment Diagnosis I89.0 Lymphedema Date Of Onset 06/06/24 Left Breast Lumpectomy with SLN biopsy Other Precautions Allergies to chocolate and dilantin Medical History Medical History Comments PMH includes hx of suspicious lumps in left breast 2 years ago, turned out to be benign. 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 Other medical hx: Essential hypertension, pure hypercholesterolemia, idiopathic gout of knee, colon polyp. Surgical History Surgical History Aneurysm clipping in July of 1997, will have left breast lumpectomy on 06/06/24, C- section 40+ yrs ago. Medications Medications Atenolol, atorvastatin Contraindications Contraindications N/A Family History Family History of Lymphedema No Current Work Status Current Work Status Retired Current Work Status Comments Worked at [employer] Subjective Subjective Pt states she completed 5 days of XRT August 05-2023. Pt will not need chemo. Pt states she really didn't have any issues with the XRT, she is now taking anastrozole, states she really hasn't had any side effects from this either. Pt has still not returned to riding her exercise bicycle but is trying to be more active over-all. Living Situation Current Living Situation Home With Spouse Or SO Patient Difficulties Patient Difficulties Comments No difficulties with self care , mobilities, ADLs/IADLs. Problem List Problem List Limited Knowledge of Lymphedema Treatment/Condition /Precautions,Limited Knowledge of Skin Care & Infection Precautions,Does Not Have a HEP Exercise History Does Patient Exercise Regularly No Exercise Comments Pt states she used to ride her exercise bike daily, but since her diagnosis, she has really not done it, too busy with appointments and just overwhelmed with everything. Pain Pain No ROM/Strength ROM/Strength Comments Pt has full, pain-free AROM of BUE. Compression History Does Patient Currently Wear Compression No During Daytime Does Patient Currently Wear Compression No At Night Current Swelling (Location/Pitting/Texture) Pitting Scale: 0 = No pitting 1+ Tissue returns to normal almost immediately 2+ Tissue returns after 15-30 seconds 3+ Tissue returns after 1-1/2 minutes 4+ Tissue returns after 2-3 minutes N/A Tissue no longer pits due to induration Tissue texture: Soft or indurated Clinical Presentation Area Following 06/06/24 lumpectomy with SLN biopsy, pt will be at risk for lymphedema in her left upper quadrant. Positive Stemmer's Sign No Capillary Refill Brisk Circumferential Measurements Upper Extremity Left Upper Extremity Base of Third Finger (in cm) 6.5 MCP (in cm) 19.0 Palm (in cm) 19.5 Smallest Wrist Measurement (in cm) 17.0 10 cm Above Smallest Wrist Measurement 23.1 20 cm Above Smallest Wrist Measurement 25.8 30 cm Above Smallest Wrist Measurement 31.3 40 cm Above Smallest Wrist Measurement 34.8 Total Girth in cm 177.0 Upper Extremity Volume Total in cm 2,330.15 Right Upper Extremity Base of Third Finger (in cm) 6.5 MCP (in cm) 19.4 Palm (in cm) 19.8 Smallest Wrist Measurement (in cm) 17.1 10 cm Above Smallest Wrist Measurement 23.2 20 cm Above Smallest Wrist Measurement 26.2 30 cm Above Smallest Wrist Measurement 31.1 40 cm Above Smallest Wrist Measurement 35.1 Total Girth in cm 178.4 Upper Extremity Volume Total in cm 2,339.36 Treatment Self-Care/Home Management Minutes ( 20 minutes) Self-Care/Home Management Comments Provided review of patient education regarding the lymphatic system, s/s of lymphedema, treatment options for lymphedema, implications of untreated lymphedema, infection and it's correlation to lymphedema as well as implications of untreated infection. Provided additional information regarding risk factors related to XRT, especially related to fibrosis , cellulitis and skin care. Discussed risk reduction practices including skin care and monitoring strategies. Discussed the importance of regular exercise and healthy habits. Emphasis was placed on increasing activity. Total Occupational Therapy Minutes 20 Assessment Assessment Over-all, pt is doing quite well, she does not present with any concerns regarding lymphedema or infection. 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 Pt understands risks for cellulitis and lymphedema as well as the importance of self -monitoring, good skin care and increasing activity levels . Patient Goals Patient Goals 1. Pt will demonstrate a general understanding of the lymphatic system, s/s of lymphedema, treatment of lymphedema, implications of untreated lymphedema, s/s of infection and the correlation of infection related to lymphedema. 3 months 2. Pt will be compliant with quarterly assessments for lymphedema surveillance in order to obtain early intervention with best outcomes if needed. 12 months Treatment Plan Treatment Plan Evaluation,Edema Control, Manual Therapy,Wound Care/Scar Management,Therapeutic Exercise,Therapeutic Activities,Self-Care/Home Management,Education Other Treatment Plan Pt will have re-assessment 4 weeks after surgery and then 1 visit every 3 months x 12 months for lymphedema surveillance. If patient develops concerns for lymphedema, pt will be seen as indicated at the time of findings. Occupational Therapy Billing Units Treatment Minutes Timed Treatment Minutes 20 Total Treatment Minutes 20 Billing Units Self Care/Home Management 1 Certification Statement Certification Statement I Certify That: Therapy Services Provided, Therapy Plan Established, Therapy Plan Reviewed Recertification Information Recertification Information Initial Certification Date 06/04/24 Recertification Start Date 09/02/24 Recertification Due Date 11/29/24 Reasons to Continue Skilled Therapy Pt will continue with lymphedema surveillance program with re-assessment quarterly for 12 months following date of surgery. If the need arises, pt will transition to treatment as indicated at the time of need. Studies have shown that continued pt education / assessment leads to early detection and treatment of lymphedema which lends to the best long-term outcomes. Rehabilitation Potential Good Click To Default 'Per treatment plan' Per treatment plan Continued Plan of Care and Interventions Per treatment plan Provider Signature Required Yes Provider Signature Shows Agreement With POC & Medical Necessity Physician NPI Number Write NPI# Here Physician Comment/Change Comment or Changes Physician Signature & Date Requested Please Sign/Date Here
--- NOTE | 2024-12-31 11:09 | OT.OPLDN2 ---
OT Outpatient Lymphedema Daily Note OT Outpatient Lymphedema Daily Note* Start: 06/04/24 07:34 Freq: Status: Active Protocol: Document 12/31/24 10:09 AMB (Rec: 12/31/24 11:08 AMB [id number]) E-signed By Juani Suresh, OTR/L, CLT, [employer] Type of Note Type of Note Type of Note Daily Note,Discharge Note, Recert/Progress Note Visit Number [id number] Insurance Information Insurance Information Insurance Information Blue Cross/Blue Shield, Medicare B OT OP Lymphedema Daily/Progress Note Current Condition/Medical Diagnosis Referring Provider Dr Briones Treatment Diagnosis I89.0 Lymphedema Date Of Onset 06/06/24 Left Breast Lumpectomy with SLN biopsy Other Precautions Allergies to chocolate and dilantin Medical History Medical History Comments PMH includes hx of suspicious lumps in left breast 2 years ago, turned out to be benign. 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 Other medical hx: Essential hypertension, pure hypercholesterolemia, idiopathic gout of knee, colon polyp. Surgical History Surgical History Aneurysm clipping in July of 1997, will have left breast lumpectomy on 06/06/24, C- section 40+ yrs ago. Medications Medications Atenolol, atorvastatin Contraindications Contraindications N/A Family History Family History of Lymphedema No Current Work Status Current Work Status Retired Current Work Status Comments Worked at [employer] Subjective Subjective Pt states she is doing very well, no longer having any pain in her incision and is tolerating the Anastrozole well, no side effects. Pt has a visit in early February for a mammogram and then will see Dr Duran. Pt denies noticing any swelling anywhere. Pt feels she would like to be discharged from OT today if her numbers are good. States she is just ready to be done with so many appointments. Supported pt's decision and encouraged pt to call if she ever had any questions or concerns. Living Situation Current Living Situation Home With Spouse Or SO Patient Difficulties Patient Difficulties Comments No difficulties with self care , mobilities, ADLs/IADLs. Problem List Problem List Limited Knowledge of Lymphedema Treatment/Condition /Precautions,Limited Knowledge of Skin Care & Infection Precautions,Does Not Have a HEP Exercise History Does Patient Exercise Regularly No Exercise Comments Pt states she used to ride her exercise bike daily, but since her diagnosis, she has really not done it, too busy with appointments and just overwhelmed with everything. Pain Pain No ROM/Strength ROM/Strength Comments Pt has full, pain-free AROM of BUE. Compression History Does Patient Currently Wear Compression No During Daytime Does Patient Currently Wear Compression No At Night Current Swelling (Location/Pitting/Texture) Pitting Scale: 0 = No pitting 1+ Tissue returns to normal almost immediately 2+ Tissue returns after 15-30 seconds 3+ Tissue returns after 1-1/2 minutes 4+ Tissue returns after 2-3 minutes N/A Tissue no longer pits due to induration Tissue texture: Soft or indurated Clinical Presentation Area Following 06/06/24 lumpectomy with SLN biopsy, pt will be at risk for lymphedema in her left upper quadrant. Positive Stemmer's Sign No Capillary Refill Brisk Circumferential Measurements Upper Extremity Left Upper Extremity Base of Third Finger (in cm) 6.5 MCP (in cm) 19.0 Palm (in cm) 19.5 Smallest Wrist Measurement (in cm) 16.8 10 cm Above Smallest Wrist Measurement 23.3 20 cm Above Smallest Wrist Measurement 25.8 30 cm Above Smallest Wrist Measurement 31.3 40 cm Above Smallest Wrist Measurement 34.6 Total Girth in cm 176.8 Upper Extremity Volume Total in cm 2,330.15 Right Upper Extremity Base of Third Finger (in cm) 6.5 MCP (in cm) 19.4 Palm (in cm) 19.8 Smallest Wrist Measurement (in cm) 17.1 10 cm Above Smallest Wrist Measurement 23.2 20 cm Above Smallest Wrist Measurement 26.2 30 cm Above Smallest Wrist Measurement 31.1 40 cm Above Smallest Wrist Measurement 35.1 Total Girth in cm 178.4 Upper Extremity Volume Total in cm 2,339.36 Treatment Self-Care/Home Management Minutes ( 24 minutes) Self-Care/Home Management Comments Provided review of patient education regarding the lymphatic system, s/s of lymphedema, treatment options for lymphedema, implications of untreated lymphedema, infection and it's correlation to lymphedema as well as implications of untreated infection. Provided additional information regarding risk factors related to XRT, especially related to fibrosis , cellulitis and skin care. Discussed risk reduction practices including skin care and monitoring strategies. Discussed the importance of regular exercise and healthy habits. Emphasis was placed on increasing activity. Discussed lymphedema surveillance program which is offered for 12 months following her surgery, pt states she feels like she is doing well and has a good understanding of lymphedema and risk reduction practices, wished to discontinue OP OT at this time. Total Occupational Therapy Minutes 24 Assessment Assessment Pt is doing very well, pt no longer has any pain in her breast / incision, feels her incision has really softened and is no loner a problem, still working on increasing her activity levels and feels with spring now here and summer, she will have more success with this, she does understand the benefit of this related to lymphedema risk reduction. Pt has met all of her goals and understands risks and risk reduction practices related to lymphedema. Patient Goals Patient Goals 12/31/24 All goals have been met. Pt will continue to monitor at home. 1. Pt will demonstrate a general understanding of the lymphatic system, s/s of lymphedema, treatment of lymphedema, implications of untreated lymphedema, s/s of infection and the correlation of infection related to lymphedema. 3 months 2. Pt will be compliant with quarterly assessments for lymphedema surveillance in order to obtain early intervention with best outcomes if needed. 12 months Treatment Plan Treatment Plan Evaluation,Edema Control, Manual Therapy,Wound Care/Scar Management,Therapeutic Exercise,Therapeutic Activities,Self-Care/Home Management,Education Other Treatment Plan Pt will have re-assessment 4 weeks after surgery and then 1 visit every 3 months x 12 months for lymphedema surveillance. If patient develops concerns for lymphedema, pt will be seen as indicated at the time of findings. Occupational Therapy Billing Units Treatment Minutes Timed Treatment Minutes 24 Total Treatment Minutes 24 Billing Units Self Care/Home Management 1 Certification Statement Certification Statement I Certify That: Therapy Services Provided, Therapy Plan Established, Therapy Plan Reviewed Recertification Information Recertification Information Initial Certification Date 06/04/24 Recertification Start Date 11/30/23 Recertification Due Date 01/01/25 Reasons to Continue Skilled Therapy Pt was seen for her last lymphedema surveillance visit today. This program offers re- assessment quarterly for 12 months following date of surgery, however, pt wished to be discharged today. Pt was provided with contact info and encouraged to call medical writer if questions or concerns arise . Rehabilitation Potential Good Click To Default 'Per treatment plan' Per treatment plan Continued Plan of Care and Interventions Per treatment plan Provider Signature Required Yes Provider Signature Shows Agreement With POC & Medical Necessity Physician NPI Number Write NPI# Here Physician Comment/Change Comment or Changes Physician Signature & Date Requested Please Sign/Date Here Discharge Note Discharge Note Discharge Summary Pt was seen for a total of 4 visits from her initial evaluation on 06/04/25 through today. Pt has been independent and compliant with home recommendations as well as clinic visits. Pt is choosing to discontinue the lymphedema surveillance program early as she feels she will be able to monitor on her own. Pt has contact info and will contact clinic if she has future questions or concerns. Interventions Provided During Treatment Evaluation,Edema Control, Manual Therapy,Wound Care/Scar Management,Therapeutic Exercise,Therapeutic Activities,Self Care/Home Management,Education Recommendations/Reason for Discharge Met All Therapy Goals
== END 2024-12-31 11:10 | disposition home or self-care (01) ==
PROVIDERS: PCP Family Medicine; Visit Provider Surgery
DX: C50.512 Malignant neoplasm of lower-outer quadrant of left female breast (principal); Z17.0 Estrogen receptor positive status [ER+]; Z51.89 Encounter for other specified aftercare
CPT/HCPCS: 97110; 97140; 97161; 97165; 97535

== ENCOUNTER 2025-07-04 09:03 | Outpatient (RCR) | payer MEDICARE, SELFPAY | END 2025-08-14 15:33 | disposition home or self-care (01) | PROVIDERS: PCP Family Medicine; Visit Provider Physician Assistant | DX: M17.11 Unilateral primary osteoarthritis, right knee (principal); M25.561 Pain in right knee; G89.29 Other chronic pain; Z51.89 Encounter for other specified aftercare | CPT/HCPCS: 97110; 97161 ==